=== PATIENT | male | born 1935 | race African-American/Black ===

== ENCOUNTER 2016-11-09 08:45 | Inpatient (IN) | payer OTHER ==
[~2016-11-09] VITALS: Ht 182.9 cm; Wt 70.0 kg
[~2016-11-09 08:45] MED LIST: ACET325T16 PO; ALLO100T PO; AMOX1TAB11 PO; BRIM5DRO3 EACHEYE; GUAI600T38 PO; IPRA3AMP NEB; LEVO250T25 PO; LEVO750T31 PO; NYST1000 SWSW; POLY17PO5 PO; PRED-220 PO; PRED20TA PO; TAMS0.4C97 PO; TIMO5DRO5 EACHEYE; TRIA1TAB3 PO
[2016-11-09] MEDS ORDERED: ALBUTEROL SULFATE 2.5 MG/3 ML NEBU. CONT NEB ONE (09:00)
--- NOTE | 2016-11-09 09:09 | PHYS DOC ---
Past Medical History Past Medical History: Cancer, COPD, Hypertension, Other Additional Past Medical Histor: gout, LUNG CANCER Past Surgical History: Other Additional Past Surgical Histo: R LUNG PARTIAL LOBECTOMY S/P LUNG CANCER Alcohol Use: Occasionally Drug Use: None Adult General Chief Complaint Chief Complaint: SHORTNESS OF BREATH HPI HPI Patient is a 81 year old male who presents with complaint of severe shortness of breath. Patient states his symptoms started 3 days ago and have gradually worsened since then. Patient has history of COPD. Patient states that he took a breathing treatment yesterday but has not taken any treatments today for his symptoms. Patient denies any associated fevers. Patient states that he had chest pain yesterday with his symptoms but denies any chest pain currently. Denies any nausea, vomiting, abdominal pain. Patient follows a Dr. Flores for primary care. Patient states that he is normally on 3 L per nasal cannula oxygen at home. Review of Systems Review of Systems Constitutional: Denies fever or chills [] Eyes: Denies change in visual acuity, redness, or eye pain [] HENT: Denies nasal congestion or sore throat [] Respiratory: Cough, shortness of breath [] Cardiovascular: Denies chest pain or edema [] GI: Denies abdominal pain, nausea, vomiting, bloody stools or diarrhea [] : Denies dysuria or hematuria [] Musculoskeletal: Denies back pain or joint pain [] Integument: Denies rash or skin lesions [] Neurologic: Denies headache, focal weakness or sensory changes [] Endocrine: Denies polyuria or polydipsia [] Current Medications Current Medications Current Medications Medications (Trade) Dose Ordered Sig/Lee Start Time Stop Time Status Last Admin Dose Admin Albuterol Sulfate (Ventolin Neb Soln) 7.5 mg 1X ONCE 11/09/16 09:00 11/09/16 09:05 DC 11/09/16 09:17 7.5 MG Albuterol/ Ipratropium (Duoneb) 3 ml 1X ONCE 11/09/16 09:30 11/09/16 09:31 DC 11/09/16 09:16 3 ML Methylprednisolone Sodium Succinate (Solu-Medrol 125mg Vial) 125 mg 1X ONCE 11/09/16 09:30 11/09/16 09:31 DC 11/09/16 09:41 125 MG Allergies Allergies Allergies Coded Allergies Type Severity Reaction Last Updated Verified No Known Drug Allergies 01/10/15 No Physical Exam Physical Exam Constitutional: Alert, afebrile, appears in moderate to severe respiratory distress. [] HENT: Normocephalic, atraumatic, bilateral external ears normal, oropharynx moist, no oral exudates, nose normal. [] Eyes: PERRLA, EOMI, conjunctiva normal, no discharge. [] Neck: Normal range of motion, no tenderness, supple, no stridor. [] Cardiovascular: Tachycardia, regular rhythm, no murmur [] Lungs & Thorax: Accessory muscle usage present, severely restricted air movement bilaterally, expiratory wheezes bilaterally, no rales [] Abdomen: Bowel sounds normal, soft, no tenderness, no masses, no pulsatile masses. [] Skin: Warm, dry, no erythema, no rash. [] Back: No tenderness, no CVA tenderness. [] Extremities: No tenderness, no cyanosis, no clubbing, ROM intact, no edema. [] Neurologic: Alert and oriented X 3, normal motor function, normal sensory function, no focal deficits noted. [] Current Patient Data Vital Signs Vital Signs Date Time Temp Pulse Resp B/P Pulse Ox O2 Delivery O2 Flow Rate FiO2 11/09/16 09:14 Nasal Cannula 3.0 11/09/16 08:59 98.1 106 28 133/76 66 98.1 Lab Values Laboratory Tests Test 11/09/16 09:15 11/09/16 09:25 White Blood Count 22.2x10^3/uL (4.0-11.0) H Red Blood Count 4.24x10^6/uL (4.30-5.70) L Hemoglobin 11.4g/dL (13.0-17.5) L Hematocrit 35.4% (39.0-53.0) L Mean Corpuscular Volume 83fL (79-100) Mean Corpuscular Hemoglobin 27pg (25-35) Mean Corpuscular Hemoglobin Concent 32g/dL (31-37) Red Cell Distribution Width 14.7% (11.5-14.5) H Platelet Count 215x10^3/uL (140-400) Neutrophils (%) (Auto) 79% (31-73) H Lymphocytes (%) (Auto) 8% (24-48) L Monocytes (%) (Auto) 12% (0-9) H Eosinophils (%) (Auto) 0% (0-3) Basophils (%) (Auto) 0% (0-3) Neutrophils # (Auto) 17.7x10^3uL (1.8-7.7) H Lymphocytes # (Auto) 1.8x10^3/uL (1.0-4.8) Monocytes # (Auto) 2.6x10^3/uL (0.0-1.1) H Eosinophils # (Auto) 0.1x10^3/uL (0.0-0.7) Basophils # (Auto) 0.1x10^3/uL (0.0-0.2) Platelet Estimate Pending Sodium Level 142mmol/L (136-145) Potassium Level 4.4mmol/L (3.5-5.1) Chloride Level 100mmol/L (98-107) Carbon Dioxide Level 34mmol/L (21-32) H Anion Gap 8 (6-14) Blood Urea Nitrogen 29mg/dL (8-26) H Creatinine 1.6mg/dL (0.7-1.3) H Estimated GFR (Cockcroft-Gault) 50.6 BUN/Creatinine Ratio 18 (6-20) Glucose Level 137mg/dL (70-99) H Lactic Acid Level 1.1mmol/L (0.4-2.0) Calcium Level 9.9mg/dL (8.5-10.1) Total Bilirubin 0.6mg/dL (0.2-1.0) Aspartate Amino Transferase (AST) 17U/L (15-37) Alanine Aminotransferase (ALT) 13U/L (16-63) L Alkaline Phosphatase 90U/L (46-116) Creatine Kinase 58U/L (39-308) Creatine Kinase MB (Mass) 0.7ng/mL (0.0-3.6) Creatine Kinase MB Relative Index % (0-4) Troponin I Quantitative < 0.017ng/mL (0.000-0.055) GF-Man-E-Type Natriuretic Peptide 94pg/mL (0-449) Total Protein 9.0g/dL (6.4-8.2) H Albumin 3.8g/dL (3.4-5.0) Albumin/Globulin Ratio 0.7 (1.0-1.7) L Influenza Type A Antigen Negative (NEGATIVE) Influenza Type B Antigen Negative (NEGATIVE) Laboratory Tests 11/09/16 09:15 Laboratory Tests 11/09/16 09:15 EKG EKG Interpreted by me: Heart rate 105, sinus tachycardia, left axis deviation, normal intervals, nonspecific T-wave inversion in lead aVL, no acute ST elevations or depressions Radiology/Procedures Radiology/Procedures [facility] [address] [place] [address] IMAGING REPORT Signed PATIENT: ORTIZ HSU ACCOUNT: [id number] : 1935 LOCATION: ER AGE: 81 SEX: M EXAM STATUS: PRE ER ORD. PHYSICIAN: MCKENNA RESENDIZ MD REASON: respiratory distress PROCEDURE: PORTABLE CHEST 1V Portable chest, 11/09/2016: History: Respiratory distress, intermittent chest pain Comparison is made to a study from 05/31/2016. The heart size is normal. There is aortic atherosclerosis. There are scattered parenchymal scars. Blunting of the right lateral costophrenic angle is unchanged and is apparently due to scarring. No superimposed acute infiltrates are seen. Lateral rib deformities on the right are likely postsurgical. IMPRESSION: 1. Postsurgical change with pleural/parenchymal scarring on the right. 2. No acute cardiopulmonary abnormality is detected. DICTATED and SIGNED BY: NAIMA APONTE MD DATE: 11/09/16914 CC: CARMEN FLORES; MCKENNA RESENDIZ MD ~ [] Course & Med Decision Making Course & Med Decision Making Pertinent Labs and Imaging studies reviewed. (See chart for details) Patient was started on an hour-long breathing treatment in the emergency department. On reevaluation, the patient is moving better air but is still moderately restricted. Due to the presence of desaturation to the mid 80s with minimal exertion, the patient will need admission for further treatment. Patient 's chest x-ray did not reveal obvious pneumonia, however patient does have leukocytosis and tachycardia. Clinically the patient display symptoms concerning for pneumonia. The patient after consultation with Dr. kings molina, the patient's accepting physician, will be started on IV Levaquin for treatment. I consult placed to Dr. Montee to follow patient in hospital. Dragon Disclaimer Dragon Disclaimer This electronic medical record was generated, in whole or in part, using a voice recognition dictation system. Departure Departure Impression: Primary Impression: Acute on chronic respiratory failure Additional Impression: CAP (community acquired pneumonia) Disposition: ADMITTED INPATIENT Admitting Physician: Flaco Pfeiffer Condition: GUARDED Referrals: CARMEN FLORES (PCP) Problem Qualifiers Primary Impression: Acute on chronic respiratory failure Respiratory failure complication: hypoxia Qualified Code: J96.21 - Acute and chronic respiratory failure with hypoxia MCKENNA RESENDIZ MD Nov 09, 2016 09:09
--- NOTE | 2016-11-09 09:21 | RAD ---
Portable chest, 11/09/2016: History: Respiratory distress, intermittent chest pain Comparison is made to a study from 05/31/2016. The heart size is normal. There is aortic atherosclerosis. There are scattered parenchymal scars. Blunting of the right lateral costophrenic angle is unchanged and is apparently due to scarring. No superimposed acute infiltrates are seen. Lateral rib deformities on the right are likely postsurgical. IMPRESSION: 1. Postsurgical change with pleural/parenchymal scarring on the right. 2. No acute cardiopulmonary abnormality is detected.
[2016-11-09] MEDS ORDERED: methylPREDNISolone SOD SUCC PF 125 MG/2 ML VIAL. IV ONE (09:30)
[2016-11-09] MEDS ORDERED: IPRATRPIUM/ALBUTEROL 0.5/2.5MG 3 ML NEBU. NEB ONE (09:30)
[2016-11-09 09:35] LABS: BASO # 0.1 x10^3/uL (0.0-0.2); BASO % 0 % (0-3); EOS % 0 % (0-3); HEMATOCRIT 35.4 % (39.0-53.0); HEMOGLOBIN 11.4 g/dL (13.0-17.5); LYMPH # 1.8 x10^3/uL (1.0-4.8); LYMPH % 8 % (24-48); MEAN CORPUSCULAR HEMOGLOBIN 27 pg (25-35); MEAN CORPUSCULAR HGB CONC 32 g/dL (31-37); MEAN CORPUSCULAR VOLUME 83 fL (79-100); MONO % 12 % (0-9); NEUT % 79 % (31-73); PLATELET COUNT 215 x10^3/uL (140-400); RED BLOOD COUNT 4.24 x10^6/uL (4.30-5.70); RED CELL DISTRIBUTION WIDTH 14.7 % (11.5-14.5); WHITE BLOOD COUNT 22.2 x10^3/uL (4.0-11.0)
[2016-11-09 09:46] LABS: CALCIUM 9.9 mg/dL (8.5-10.1); CREATININE 1.6 mg/dL (0.7-1.3); GFR 50.6; POTASSIUM 4.4 mmol/L (3.5-5.1)
[2016-11-09 09:54] LABS: OBC FLU VALID
[2016-11-09 10:00] LABS: ALBUMIN 3.8 g/dL (3.4-5.0); ALBUMIN/GLOBULIN RATIO 0.7 (1.0-1.7); TOTAL BILIRUBIN 0.6 mg/dL (0.2-1.0)
[2016-11-09 10:01] LABS: CKMB MASS 0.7 ng/mL (0.0-3.6); CREATINE KINASE 58 U/L (39-308)
[2016-11-09] MEDS ORDERED: ACETAMINOPHEN 325 MG TABLET. PO PRN ×2 (10:30→14:30)
[2016-11-09] MEDS ORDERED: ONDANSETRON PF 4 MG/2 ML VIAL. IV PRN (10:30)
[2016-11-09] MEDS ORDERED: LEVOFLOXACIN PER PHARMACY MC PRN (10:30)
[2016-11-09] MEDS: IV NORMAL SALINE 1000ML BAG 1,000 ML IV SCH ×2 (10:44→16:08)
[2016-11-09] MEDS: IPRATRPIUM/ALBUTEROL 0.5/2.5MG 3 ML NEBU. NEB SCH ×5 (12:13→19:28)
[2016-11-09 13:00] VITALS: BP 137/74
--- NOTE | 2016-11-09 13:03 | EKG ---
[facility] [address] [place] [address] Test Date: 2016-11-09 Test Time: 08:58:44 Pat Name: ORTIZ HSU Department: Room: 2 Gender: M Echo Tech: : [id number] Requested By: MCKENNA RESENDIZ Order Number: [id number] Reading MD: Mitzy Portillo Measurements Intervals [place] Rate: 105 P: -56 VT: 130 QRS: -66 QRSD: 96 T: 86 QT: 310 QTc: 413 Interpretive Statements SINUS TACHYCARDIA ABNORMAL LEFT AXIS DEVIATION T ABNORMALITY IN HIGH LATERAL LEADS ABNORMAL ECG RI6.01 Compared to ECG 05/09/2016 11:05:04 No significant changes Electronically Signed On 11-10-2016 20:15:33 CDT by Mitzy Portillo
[2016-11-09] MEDS ORDERED: TRIA1TAB3 (13:14)
[2016-11-09] MEDS ORDERED: ALBU2.5V5 (13:14)
--- NOTE | 2016-11-09 13:16 | PDOC ---
Provider Note Provider Note [id number] acute on chronic resp fail ae of copd acute bronchitis see orders. ROSARIO CRAIN MD Nov 09, 2016 13:16
--- NOTE | 2016-11-09 14:06 | CONS ---
DATE OF CONSULTATION: 11/09/2016 CHIEF COMPLAINT: I was asked to see this 81-year-old gentleman for [id number] respiratory failure, acute exacerbation of chronic obstructive pulmonary disease, shortness of breath, wheezing, and cough. HISTORY OF PRESENT ILLNESS: He does have a history of [id number]-aeyq smoking, stopped smoking 16 years ago. He is on chronic oxygen. He has a history of lung cancer, status post right upper lobectomy in 1999. He has been followed by Dr. Kent. He started to have increased shortness of breath and cough with yellow sputum production 2 days ago. He had some chills. He has runny nose. He has had chest tightness, but not chest pain. He denies gastroesophageal reflux symptoms. PAST MEDICAL HISTORY: COPD, chronic respiratory failure, lung cancer, status post right upper lobectomy, and gout. ALLERGIES: No known drug allergies. MEDICATIONS: Currently, he is on Solu-Medrol 60 mg IV every 6 hours., Levaquin 250 mg daily, IV fluid, and albuterol and Atrovent nebulizer treatment. SOCIAL HISTORY: History of 47-fghi-[id number] smoking, stopped smoking 16 years ago. FAMILY HISTORY: Positive for hypertension. REVIEW OF SYSTEMS: As mentioned as above, other systems otherwise negative. PHYSICAL EXAMINATION: VITAL SIGNS: His O2 saturation is 93% on 4 liters of oxygen, respiratory rate on admission was 28, now is 20, heart rate 100, blood pressure 132/76, and temperature 98.1. GENERAL: This is an elderly gentleman, on oxygen. HEENT: Normocephalic, atraumatic. Pupils are equal, round, and reactive to light. Throat is clear. Nose is clear. NECK: There is no JVD, lymphadenopathy, or thyromegaly. CARDIOVASCULAR: Regular rate and rhythm. PMI is nondisplaced. CHEST: Inspection is normal. LUNGS: There is bilateral end expiratory wheezing, diminished breath sounds. Right base dullness. ABDOMEN: Soft. Bowel sounds are good. There is no mass. EXTREMITIES: There is no edema. LYMPHATICS: There is no lymphadenopathy. NEUROLOGIC: Alert and oriented x 3. SKIN: Chronic changes. LYMPHATICS: There is no lymphadenopathy. LABORATORY DATA: I reviewed the following lab data: Chest x-ray shows status post right upper lobectomy, COPD changes, no infiltrate. WBC 22.2, hemoglobin 11.4, and platelet 215. Sodium 142, potassium 4.4, chloride 100, CO2 of 34, glucose 137, BUN 29, and creatinine 1.6. Troponin is less than 0.01. BNP is 94. IMPRESSION: 1. Acute on chronic respiratory failure, multifactorial in etiology. 2. Acute exacerbation of chronic obstructive pulmonary disease. 3. Acute bronchitis. 4. Acute kidney injury. 5. Leukocytosis. 6. Anemia. PLAN AND RECOMMENDATIONS: 1. Titrate FiO2 to keep O2 saturation 92%. 2. Bronchodilator. 3. Add inhaled corticosteroid. 4. Continue Solu-Medrol. 5. Continue Levaquin. 6. Sputum culture. 7. Influenza A and B is negative. 8. Lovenox for DVT prophylaxis. 9. Protonix for stress ulcer prophylaxis. 10. Monitor respiratory status very closely. 11. Continue not smoking. 12. His CT of the chest in July 2016 did not show any acute process, mass, or nodule. The findings and recommendations were discussed with the patient and his daughters. They understood and agreed to proceed with the plan. I have answered all of their questions. Thank you very much for allowing me to participate in care of this very nice gentleman. ROSARIO CRAIN M.D. : EDENILSON/chandler JOB#: [id number] / [id number]
--- NOTE | 2016-11-09 14:15 | ACF ---
Admission Forms Criteria RESPIRATORY FAILURE [facility] Clinical Indications for Admission to Inpatient Care (Place 'X' for any and all applicable criteria): Hospital admission is needed for appropriate care of the patient because of acute respiratory failure or insufficiency as indicated by ANY ONE of the following(1)(2)(3)(4)(5)(6)(7)(8): [X]I. Mechanical ventilation needed (acute invasive or noninvasive) [ ]II. Severe ventilation deficit as indicated by ANY ONE of the following (9) [ ]a) Respiratory acidosis (pH less than 7.32 and partial pressure of carbon dioxide greater than 40 mm Hg (5.3 kPa)) [ ]b) Partial pressure of carbon dioxide greater than 44 mm Hg (5.9 kPa ) (new) [ ]c) Airflow measurements less than 25% of predicted (eg, peak expiratory flow rate less than 100 L/minute) [ ]d) Forced vital capacity less than 15 mL/kg of ideal body weight, or 50% decrease in vital capacity from baseline [ ]III. Noncardiac pulmonary edema not resolving with rapid emergency treatment (8) [ ]IV. Severe respiratory distress as indicated by ANY ONE of the following: [ ]a) Severe tachypnea (respiratory rate greater than 30, greater than 45 for 6-month-old, greater than 60 for ) [ ]b) Severe hypoxemia (partial pressure of oxygen less than 50 mm Hg ( 6.7 kPa) on greater than 50% oxygen or partial pressure of oxygen to FIO2 ratio less than 200) [ ]c) Mental status deterioration from respiratory disease [ ]V. Airway obstruction or inadequate protection [A](10)(11) The original [employer] content created by [employer] has been revised. The portions of the content which have been revised are identified through the use of italic text or in bold, and [employer] has neither reviewed nor approved the modified material. All other unmodified content is copyright [employer]. Please see references footnoted in the original [employer] edition 2016 Admission Criteria Met?: Yes DAVID LOW Nov 09, 2016 14:14
[2016-11-09] MEDS ORDERED: POLYETHYLENE GLYCOL 3350 17 GM PACKET. PO PRN (14:30)
[2016-11-09 14:47] VITALS: BP 140/72
[2016-11-09] MEDS: BRIMONIDINE 0.2% OPHTH SOLUTION 5ML BOTTLE. OU SCH ×2 (15:00→20:51)
[2016-11-09 15:29] LABS: PLT ESTIMATE ADEQUATE (ADEQUATE)
--- NOTE | 2016-11-09 15:47 | PDOC ---
Provider Note Provider Note Pt seen.H&P to be dictated SARITA FLORES MD Nov 09, 2016 15:47
[2016-11-09] MEDS: NYSTATIN 100,000 UNITS/ML 5 ML ORAL.SUSP. SWSW SCH ×2 (16:01→20:54)
[2016-11-09] MEDS: ENOXAPARIN 30 MG/0.3 ML DISP.SYRIN. SQ SCH (16:01)
[2016-11-09] MEDS: methylPREDNISolone SOD SUCC PF 125 MG/2 ML VIAL. IV SCH ×3 (16:01→23:57)
[2016-11-09] MEDS: PANTOPRAZOLE 40 MG TABLET. PO SCH (16:02)
[2016-11-09] MEDS: TIMOLOL 0.5% OPHTH SOLUTION 5ML BOTTLE. OU SCH ×2 (16:02→20:51)
[2016-11-09 19:00] VITALS: BP 136/76
[2016-11-09] MEDS: BUDESONIDE 0.5 MG/2 ML NEBU NEB SCH (19:29)
[2016-11-09] MEDS: GUAIFENESIN ER 600 MG TABLET.ER PO SCH (20:52)
[2016-11-09 23:00] VITALS: BP 118/78
--- NOTE | 2016-11-09 23:49 | HP ---
ADMIT DATE: 11/09/2016 PATIENT LOCATION: [facility]. REASON FOR ADMISSION TO THE HOSPITAL: Shortness of breath, COPD with acute exacerbation, acute bronchitis, possible pneumonitis. HISTORY OF PRESENT ILLNESS: The patient is an 81-year-old male, patient of Dr. Carl. He has history of COPD. I had seen him in the last week or so, was given medications, prednisone and antibiotic, did not improve. He is coughing up some green-yellow phlegm. Getting progressively worse and more short of breath, came to the Emergency Room, was given IV Solu-Medrol, IV antibiotics. Pulmonary was consulted and the patient was admitted to the hospital. PAST MEDICAL HISTORY: He has history of lung cancer, had a right upper lobectomy in 1999, history of COPD, gout, hypertension. PAST SURGICAL HISTORY: He had lobectomy. ALLERGIES: No known drug allergies. MEDICATIONS AT HOME: The patient is on albuterol, was on Augmentin recently, prednisone recently, Dyazide one daily, Tylenol q. 6, allopurinol 100 mg daily, eyedrops for glaucoma, Alphagan one drop each eye 3 times a day, Mucinex 600 twice a day, DuoNeb 4 times daily, nystatin daily, MiraLax 17 g daily, Flomax 0.4 daily and timolol eyedrops 3 times a day each eye. SOCIAL HISTORY: The patient has nebulizer at home and also is on home oxygen. The patient is vaccination up to date on flu and pneumonia shots. REVIEW OF SYSTEMS: Complains of green phlegm and short of breath. No fever. Thick yellow sputum. Wheezing. FAMILY HISTORY: Positive for heart disease and hypertension. PERSONAL HISTORY: Smoking for 30-40 years, quit 16 years ago. No history of alcohol or drug abuse. PHYSICAL EXAMINATION: GENERAL: The patient is comfortable now. VITAL SIGNS: At the time of admission shows a temperature 98, pulse 106, respirations 28, blood pressure 133/76 and 66% on 3 liters, then went up to 100 on 3 liters with breathing treatment. HEENT: Head is atraumatic. Pupils equal. Oral cavity: No congestion. NECK: Supple. Thyroid not enlarged. JVD not elevated. CHEST: Symmetrical, COPD pattern. Has right upper lobe scar from lobectomy. LUNGS: Diminished breath sounds, occasional wheezing, crackles at the bases. ABDOMEN: Soft, bowel sounds present, no mass palpable. EXTERNAL GENITALIA: No Du. RECTAL: Deferred. EXTREMITIES: No calf tenderness, no edema. Pulses 1+. NEUROLOGIC: Cranial nerves intact. Power 5/5 in all extremities. The patient is coughing up thick green, yellow-green sputum and the sputum was sent for cultures. LABORATORY DATA: Shows a white count of 22, hemoglobin 11, platelets 250. Electrolytes show sodium 142, potassium 4.4, chloride 100, bicarbonate 34, BUN 29, creatinine 1.6. Lactic acid 1.1. LFTs were normal. CPK was negative. Influenza A and B was negative. Chest x-ray shows scarring in the right upper lung from previous surgery. Postsurgical changes, no acute abnormality. EKG done, no report available. FINAL IMPRESSION: 1. Possible pneumonia. 2. Chronic obstructive pulmonary disease with acute exacerbation. 3. History of lung cancer, had a lobectomy 15 years ago, right upper lobe. 4. BPH. 5. Hypertension. 6. Chronic COPD with hypoxia, on home oxygen. PLAN: At this time was admit to the hospital, hydrate with IV fluids. Sputum culture, broad spectrum antibiotic and Levaquin and also we will have pulmonary consult and see how the patient's condition improves. SARITA FLORES MD DR: JESSENIA/chandler JOB#: [id number] / [id number] anda Carl Dr.
[2016-11-10 03:00] VITALS: BP 121/53
[2016-11-10 04:50] LABS: BASO % 0 % (0-3); EOS % 0 % (0-3); HEMATOCRIT 33.9 % (39.0-53.0); HEMOGLOBIN 10.7 g/dL (13.0-17.5); LYMPH # 1.1 x10^3/uL (1.0-4.8); LYMPH % 8 % (24-48); MEAN CORPUSCULAR HEMOGLOBIN 27 pg (25-35); MEAN CORPUSCULAR HGB CONC 32 g/dL (31-37); MEAN CORPUSCULAR VOLUME 84 fL (79-100); MONO % 2 % (0-9); NEUT % 90 % (31-73); PLATELET COUNT 182 x10^3/uL (140-400); RED BLOOD COUNT 4.02 x10^6/uL (4.30-5.70); RED CELL DISTRIBUTION WIDTH 14.8 % (11.5-14.5); WHITE BLOOD COUNT 14.1 x10^3/uL (4.0-11.0)
[2016-11-10 05:05] LABS: CALCIUM 8.9 mg/dL (8.5-10.1); CREATININE 1.5 mg/dL (0.7-1.3); GFR 54.5; POTASSIUM 4.6 mmol/L (3.5-5.1)
[2016-11-10] MEDS: methylPREDNISolone SOD SUCC PF 125 MG/2 ML VIAL. IV SCH ×3 (06:16→23:04)
[2016-11-10 07:05] VITALS: BP 136/79
[2016-11-10] MEDS: BUDESONIDE 0.5 MG/2 ML NEBU NEB SCH ×2 (07:12→19:58)
[2016-11-10] MEDS: IPRATRPIUM/ALBUTEROL 0.5/2.5MG 3 ML NEBU. NEB SCH ×5 (07:12→19:58)
[2016-11-10] MEDS: TIMOLOL 0.5% OPHTH SOLUTION 5ML BOTTLE. OU SCH ×3 (08:28→20:55)
[2016-11-10] MEDS: ALLOPURINOL 100 MG TABLET. PO SCH (08:28)
[2016-11-10] MEDS: GUAIFENESIN ER 600 MG TABLET.ER PO SCH ×2 (08:28→20:50)
[2016-11-10] MEDS: PANTOPRAZOLE 40 MG TABLET. PO SCH (08:28)
[2016-11-10] MEDS: BRIMONIDINE 0.2% OPHTH SOLUTION 5ML BOTTLE. OU SCH ×3 (08:28→20:55)
[2016-11-10] MEDS: TAMSULOSIN 0.4 MG CAP.ER.24H. PO SCH (08:28)
--- NOTE | 2016-11-10 09:51 | PDOC ---
PULMONARY PROGRESS NOTES Subjective sob, cough, better, has runny nose Vitals Vital Signs Date Time Temp Pulse Resp B/P Pulse Ox O2 Delivery O2 Flow Rate FiO2 11/10/16 07:15 97 Nasal Cannula 4.0 11/10/16 07:05 97.7 92 20 136/79 97.7 Comments ros as mentioned as above other sys otherwise neg ROS: No Nausea, No Chest Pain General: Alert, Oriented X4, No acute distress HEENT: Other (nc at perrl) Lungs: Wheezing, Crackles, Other Cardiovascular: S1, S2 Abdomen: Soft, Non-tender Neuro Exam: Alert Extremities: No Edema Skin: Warm Labs Laboratory Tests Test 11/09/16 09:15 11/09/16 09:25 11/10/16 03:55 White Blood Count 22.2x10^3/uL (4.0-11.0) 14.1x10^3/uL (4.0-11.0) Red Blood Count 4.24x10^6/uL (4.30-5.70) 4.02x10^6/uL (4.30-5.70) Hemoglobin 11.4g/dL (13.0-17.5) 10.7g/dL (13.0-17.5) Hematocrit 35.4% (39.0-53.0) 33.9% (39.0-53.0) Mean Corpuscular Volume 83fL (79-100) 84fL (79-100) Mean Corpuscular Hemoglobin 27pg (25-35) 27pg (25-35) Mean Corpuscular Hemoglobin Concent 32g/dL (31-37) 32g/dL (31-37) Red Cell Distribution Width 14.7% (11.5-14.5) 14.8% (11.5-14.5) Platelet Count 215x10^3/uL (140-400) 182x10^3/uL (140-400) Neutrophils (%) (Auto) 79% (31-73) 90% (31-73) Lymphocytes (%) (Auto) 8% (24-48) 8% (24-48) Monocytes (%) (Auto) 12% (0-9) 2% (0-9) Eosinophils (%) (Auto) 0% (0-3) 0% (0-3) Basophils (%) (Auto) 0% (0-3) 0% (0-3) Neutrophils # (Auto) 17.7x10^3uL (1.8-7.7) 12.7x10^3uL (1.8-7.7) Lymphocytes # (Auto) 1.8x10^3/uL (1.0-4.8) 1.1x10^3/uL (1.0-4.8) Monocytes # (Auto) 2.6x10^3/uL (0.0-1.1) 0.3x10^3/uL (0.0-1.1) Eosinophils # (Auto) 0.1x10^3/uL (0.0-0.7) 0.0x10^3/uL (0.0-0.7) Basophils # (Auto) 0.1x10^3/uL (0.0-0.2) 0.0x10^3/uL (0.0-0.2) Segmented Neutrophils % 70% (35-66) Band Neutrophils % 8% (0-9) Lymphocytes % 10% (24-48) Monocytes % 12% (0-10) Platelet Estimate Adequate (ADEQUATE) Sodium Level 142mmol/L (136-145) 144mmol/L (136-145) Potassium Level 4.4mmol/L (3.5-5.1) 4.6mmol/L (3.5-5.1) Chloride Level 100mmol/L (98-107) 104mmol/L (98-107) Carbon Dioxide Level 34mmol/L (21-32) 31mmol/L (21-32) Anion Gap 8 (6-14) 9 (6-14) Blood Urea Nitrogen 29mg/dL (8-26) 32mg/dL (8-26) Creatinine 1.6mg/dL (0.7-1.3) 1.5mg/dL (0.7-1.3) Estimated GFR (Cockcroft-Gault) 50.6 54.5 BUN/Creatinine Ratio 18 (6-20) Glucose Level 137mg/dL (70-99) 138mg/dL (70-99) Lactic Acid Level 1.1mmol/L (0.4-2.0) Calcium Level 9.9mg/dL (8.5-10.1) 8.9mg/dL (8.5-10.1) Total Bilirubin 0.6mg/dL (0.2-1.0) Aspartate Amino Transf (AST/SGOT) 17U/L (15-37) Alanine Aminotransferase (ALT/SGPT) 13U/L (16-63) Alkaline Phosphatase 90U/L (46-116) Creatine Kinase 58U/L (39-308) Creatine Kinase MB (Mass) 0.7ng/mL (0.0-3.6) Creatine Kinase MB Relative Index % (0-4) Troponin I Quantitative < 0.017ng/mL (0.000-0.055) GS-Vuz-G-Type Natriuretic Peptide 94pg/mL (0-449) Total Protein 9.0g/dL (6.4-8.2) Albumin 3.8g/dL (3.4-5.0) Albumin/Globulin Ratio 0.7 (1.0-1.7) Influenza Type A Antigen Negative (NEGATIVE) Influenza Type B Antigen Negative (NEGATIVE) Laboratory Tests Test 11/10/16 03:55 White Blood Count 14.1x10^3/uL (4.0-11.0) Red Blood Count 4.02x10^6/uL (4.30-5.70) Hemoglobin 10.7g/dL (13.0-17.5) Hematocrit 33.9% (39.0-53.0) Mean Corpuscular Volume 84fL (79-100) Mean Corpuscular Hemoglobin 27pg (25-35) Mean Corpuscular Hemoglobin Concent 32g/dL (31-37) Red Cell Distribution Width 14.8% (11.5-14.5) Platelet Count 182x10^3/uL (140-400) Neutrophils (%) (Auto) 90% (31-73) Lymphocytes (%) (Auto) 8% (24-48) Monocytes (%) (Auto) 2% (0-9) Eosinophils (%) (Auto) 0% (0-3) Basophils (%) (Auto) 0% (0-3) Neutrophils # (Auto) 12.7x10^3uL (1.8-7.7) Lymphocytes # (Auto) 1.1x10^3/uL (1.0-4.8) Monocytes # (Auto) 0.3x10^3/uL (0.0-1.1) Eosinophils # (Auto) 0.0x10^3/uL (0.0-0.7) Basophils # (Auto) 0.0x10^3/uL (0.0-0.2) Sodium Level 144mmol/L (136-145) Potassium Level 4.6mmol/L (3.5-5.1) Chloride Level 104mmol/L (98-107) Carbon Dioxide Level 31mmol/L (21-32) Anion Gap 9 (6-14) Blood Urea Nitrogen 32mg/dL (8-26) Creatinine 1.5mg/dL (0.7-1.3) Estimated GFR (Cockcroft-Gault) 54.5 Glucose Level 138mg/dL (70-99) Calcium Level 8.9mg/dL (8.5-10.1) Medications Active Scripts Medications Dose Route/Sig Days Date Category Albuterol Sulfate Neb Soln (Albuterol Sulfate) 2.5 Mg/3 Ml Vial.neb 11/09/16 Reported Triamterene-Hctz 37.5-25 Mg Tb (Triamterene/Hydrochlorothiazid) 1 Each Tablet 11/09/16 Reported Prednisone 20 Mg Tablet 40 Mg PO DAILY 05/15/16 Rx Amox Tr-K Clv 875-125 Mg Tab (Amoxicillin/Potassium Clav) 1 Each Tablet 1 Tab PO BID 05/15/16 Rx Prednisone 10 Mg Tablet 10 Mg PO DIRECTED 05/12/16 Rx Miralax (Polyethylene Glycol 3350) 17 Gm Powd.pack 17 Gm PO PRN DAILY PRN 05/12/16 Rx Nystatin 100,000 Unit/1 Ml Oral.susp 5 Ml SWSW [id number] 05/12/16 Rx Duoneb 0.5-3(2.5) Mg/3 Ml (Albuterol/Ipratropium) 3 Ml Ampul.neb 3 Ml NEB RTQID 05/12/16 Rx Mucinex (Guaifenesin) 600 Mg Tablet.er 1,200 Mg PO BID 05/12/16 Rx Mapap (Acetaminophen) 325 Mg Tablet 650 Mg PO PRN Q6HRS PRN 05/12/16 Rx Alphagan P (Brimonidine Tartrate) 5 Ml Drops 1 Drop EACHEYE TID 04/12/16 Reported Timolol Maleate 10 Ml Drops 1 Drop EACHEYE TID 04/12/16 Reported Flomax (Tamsulosin Hcl) 0.4 Mg Cap.er.24h 1 Cap PO DAILY 10/24/15 Reported Allopurinol 100 Mg Tablet 1 Tab PO DAILY 10/24/15 Reported Comments Bands of presumed scarring bilaterally are stable. Blunting of the right costophrenic angle may be related to pleural parenchymal scarring and is stable. Impression . IMPRESSION: 1. Acute on chronic respiratory failure, multifactorial in etiology. 2. Acute exacerbation of chronic obstructive pulmonary disease. 3. Acute bronchitis. 4. Acute kidney injury. 5. Leukocytosis. 6. Anemia. Plan . PLAN AND RECOMMENDATIONS: 1. Titrate FiO2 to keep O2 saturation 92%. 2. Bronchodilator. 3. inhaled corticosteroid. 4. change Solu-Medrol to 40 q 8hrs 5. Continue Levaquin. 6. fu Sputum culture. 7. Influenza A and B is negative. 8. Lovenox for DVT prophylaxis. 9. Protonix for stress ulcer prophylaxis. 10. Monitor respiratory status very closely. 11. Continue not smoking. 12. His CT of the chest in July 2016 did not show any acute process, mass, or nodule. discussed w ROSARIO Cespedes MD Nov 10, 2016 09:51
[2016-11-10] MEDS: NYSTATIN 100,000 UNITS/ML 5 ML ORAL.SUSP. SWSW SCH ×4 (10:35→20:50)
[2016-11-10 11:05] VITALS: BP 116/63
--- NOTE | 2016-11-10 11:51 | PDOC ---
PROGRESS NOTES Subjective Subjective feeling better ,still coughing up green sputum Objective Objective Vital Signs Date Time Temp Pulse Resp B/P Pulse Ox O2 Delivery O2 Flow Rate FiO2 11/10/16 11:04 Nasal Cannula 4.0 11/10/16 07:15 97 11/10/16 07:05 97.7 92 20 136/79 97.7 Intake and Output 11/10/16 07:00 Intake Total 500 ml Output Total 1350 ml Balance -850 ml Intake Oral 500 ml Output Urine Total 1350 ml # Voids 1 Physical Exam Abdomen: Normal bowel sounds, Soft Heart: Regular rate, Normal S1, Normal S2 Extremities: No clubbing General: Alert HEENT: Atraumatic Lungs: Other (dec breath sounds) MUSCULOSKELETAL: No joint tenderness, Osteoarthritic changes both hands Neck: Supple Neuro: Normal speech Psych/Mental Status: Mental status NL Skin: No breakdown Diagnosis Problem List Problems Medical Problems: (1) Acute on chronic respiratory failure Status: Acute (2) CAP (community acquired pneumonia) Status: Acute (3) COPD exacerbation Status: Acute Assessment Assessment Problems Medical Problems: (1) Acute on chronic respiratory failure Status: Acute (2) CAP (community acquired pneumonia) Status: Acute (3) COPD exacerbation Status: Acute FINAL IMPRESSION: 1. Possible pneumonia.suspect gram neg. 2. Chronic obstructive pulmonary disease with acute exacerbation. 3. History of lung cancer, had a lobectomy 15 years ago, right upper lobe. 4. BPH. 5. Hypertension. 6. Chronic COPD with hypoxia, on home oxygen. PLAN: sputum c/s pending levaquin iv iv solumedrol. wbc down to 14. At this time was admit to the hospital, hydrate with IV fluids. Sputum culture, broad spectrum antibiotic and Levaquin and also we will have pulmonary consult and see how the patient's condition improves. Problems: Plan Plan of Care Problems Medical Problems: (1) Acute on chronic respiratory failure Status: Acute (2) CAP (community acquired pneumonia) Status: Acute (3) COPD exacerbation Status: Acute Comment Review of Relevant I have reviewed the following items jameel (where applicable) has been applied. Labs Laboratory Tests Test 11/10/16 03:55 White Blood Count 14.1x10^3/uL (4.0-11.0) Red Blood Count 4.02x10^6/uL (4.30-5.70) Hemoglobin 10.7g/dL (13.0-17.5) Hematocrit 33.9% (39.0-53.0) Mean Corpuscular Volume 84fL (79-100) Mean Corpuscular Hemoglobin 27pg (25-35) Mean Corpuscular Hemoglobin Concent 32g/dL (31-37) Red Cell Distribution Width 14.8% (11.5-14.5) Platelet Count 182x10^3/uL (140-400) Neutrophils (%) (Auto) 90% (31-73) Lymphocytes (%) (Auto) 8% (24-48) Monocytes (%) (Auto) 2% (0-9) Eosinophils (%) (Auto) 0% (0-3) Basophils (%) (Auto) 0% (0-3) Neutrophils # (Auto) 12.7x10^3uL (1.8-7.7) Lymphocytes # (Auto) 1.1x10^3/uL (1.0-4.8) Monocytes # (Auto) 0.3x10^3/uL (0.0-1.1) Eosinophils # (Auto) 0.0x10^3/uL (0.0-0.7) Basophils # (Auto) 0.0x10^3/uL (0.0-0.2) Sodium Level 144mmol/L (136-145) Potassium Level 4.6mmol/L (3.5-5.1) Chloride Level 104mmol/L (98-107) Carbon Dioxide Level 31mmol/L (21-32) Anion Gap 9 (6-14) Blood Urea Nitrogen 32mg/dL (8-26) Creatinine 1.5mg/dL (0.7-1.3) Estimated GFR (Cockcroft-Gault) 54.5 Glucose Level 138mg/dL (70-99) Calcium Level 8.9mg/dL (8.5-10.1) Microbiology 11/09/16 Blood Culture - Preliminary, Resulted NO GROWTH AFTER 1 DAY 11/09/16 Gram Stain - Final, Complete Medications Current Medications Acetaminophen (Tylenol) 650 mg PRN Q6HRS PRN PO MILD PAIN / TEMP; Start at 14:30 Albuterol/ Ipratropium (Duoneb) 3 ml RTQID NEB Last administered on 11/10/16 07:12; Start 11/09/16 at 12:00; Stop 11/10/16 at 09:54; Status DC Albuterol/ Ipratropium (Duoneb) 3 ml RTQID NEB Last administered on 11/10/16 11:03; Start 11/09/16 at 16:00 Allopurinol (Zyloprim) 100 mg DAILY PO Last administered on 11/10/16 08:28; Start 11/10/16 at 09:00 Brimonidine Tartrate (Alphagan) 1 drop TID OU Last administered on 11/10/16 08 :28; Start 11/09/16 at 15:00 Budesonide (Pulmicort) 0.5 mg RTBID NEB Last administered on 11/10/16 07:12; Start 11/09/16 at 20:00 Enoxaparin Sodium (Lovenox 30mg Syringe) 30 mg Q24H SQ Last administered on 16:01; Start 11/09/16 at 14:00 Guaifenesin (Mucinex) 1,200 mg BID PO Last administered on 11/10/16 08:28; Start 11/09/16 at 21:00 Levofloxacin/ Dextrose (LEVAQUIN 250mg PREMIX) 50 ml @ 50 mls/hr Q24H IV ; Start 11/10/16 at 12:00 Methylprednisolone Sodium Succinate (Solu-Medrol 125mg Vial) 40 mg Q8HRS IV ; Start 11/10/16 at 14:00 Methylprednisolone Sodium Succinate 60 mg 60 mg Q6HRS IV Last administered on 06:16; Start 11/09/16 at 14:00; Stop 11/10/16 at 09:53; Status DC Nystatin 5 ml [id number] Last administered on 11/09/16 20:54; Start at 17:00; Stop 11/10/16 at 10:30; Status DC Nystatin 5 ml [id number] Last administered on 11/10/16 10:35; Start at 10:30 Pantoprazole Sodium (Protonix) 40 mg DAILYAC PO Last administered on 11/10/16 08:28; Start 11/09/16 at 16:30 Polyethylene Glycol (miraLAX PACKET) 17 gm PRN DAILY PRN PO CONSTIPATION; Start 11/09/16 at 14:30 Tamsulosin HCl (Flomax) 0.4 mg DAILY PO Last administered on 11/10/16 08:28; Start 11/10/16 at 09:00 Timolol Maleate (Timoptic 0.5% Ophth) 1 drop TID OU Last administered on 08:28; Start 11/09/16 at 15:00 Vitals/I & O Vital Sign - Last 24 Hours 11/09/16 11/09/16 11/09/16 11/09/16 12:15 13:00 14:47 15:44 Temp 98.4 98.3 98.4 98.3 Pulse 101 98 Resp 14 14 B/P 137/74 140/72 Pulse Ox 93 96 96 O2 Delivery Nasal Cannula Nasal Cannula Nasal Cannula Nasal Cannula O2 Flow Rate 4.0 4.0 4.0 4.0 11/09/16 11/09/16 11/09/16 11/09/16 19:00 19:31 19:31 20:12 Temp 97.9 97.9 Pulse 87 Resp 18 B/P 136/76 Pulse Ox 98 94 94 O2 Delivery Nasal Cannula Nasal Cannula Nasal Cannula O2 Flow Rate 4.0 4.0 4.0 11/09/16 11/10/16 11/10/16 11/10/16 23:00 03:00 07:05 07:15 Temp 98.0 97.8 97.7 98.0 97.8 97.7 Pulse 80 98 92 Resp 16 18 20 B/P 118/78 121/53 136/79 Pulse Ox 99 99 97 O2 Delivery Nasal Cannula Nasal Cannula O2 Flow Rate 2.0 4.0 11/10/16 11:04 O2 Delivery Nasal Cannula O2 Flow Rate 4.0 Intake and Output 11/09/16 11/09/16 11/10/16 15:00 23:00 07:00 Intake Total 320 ml 180 ml Output Total 700 ml 650 ml Balance -380 ml -470 ml SARITA FLORES MD Nov 10, 2016 11:50
--- NOTE | 2016-11-10 14:34 | RAD ---
Indication: Follow-up pneumonia. Technique: Two-view chest radiograph was obtained. Comparison is from one day earlier. Findings: Bands of presumed scarring bilaterally are stable. Blunting of the right costophrenic angle may be related to pleural parenchymal scarring and is stable. No superimposed consolidation or effusion is apparent. Heart is not enlarged and there is no heart failure. Bony structures are intact. Leads overlie the patient. Impression: Stable examination
[2016-11-10] MEDS: ENOXAPARIN 30 MG/0.3 ML DISP.SYRIN. SQ SCH (14:54)
[2016-11-10 15:00] VITALS: BP 104/58
[2016-11-10 19:00] VITALS: BP 126/63
[2016-11-10 22:55] VITALS: BP 114/65
[2016-11-11 02:58] VITALS: BP 120/70
[2016-11-11 05:39] LABS: BASO % 0 % (0-3); EOS % 0 % (0-3); HEMATOCRIT 29.7 % (39.0-53.0); HEMOGLOBIN 9.2 g/dL (13.0-17.5); LYMPH # 0.9 x10^3/uL (1.0-4.8); LYMPH % 5 % (24-48); MEAN CORPUSCULAR HEMOGLOBIN 26 pg (25-35); MEAN CORPUSCULAR HGB CONC 31 g/dL (31-37); MEAN CORPUSCULAR VOLUME 85 fL (79-100); MONO % 3 % (0-9); NEUT % 92 % (31-73); PLATELET COUNT 178 x10^3/uL (140-400); RED BLOOD COUNT 3.48 x10^6/uL (4.30-5.70); RED CELL DISTRIBUTION WIDTH 14.8 % (11.5-14.5); WHITE BLOOD COUNT 18.1 x10^3/uL (4.0-11.0)
[2016-11-11 05:53] LABS: CREATININE 1.8 mg/dL (0.7-1.3); GFR 44.1; POTASSIUM 4.9 mmol/L (3.5-5.1)
[2016-11-11] MEDS: BUDESONIDE 0.5 MG/2 ML NEBU NEB SCH ×2 (05:56→20:09)
[2016-11-11] MEDS: IPRATRPIUM/ALBUTEROL 0.5/2.5MG 3 ML NEBU. NEB SCH ×4 (05:56→20:09)
[2016-11-11] MEDS: methylPREDNISolone SOD SUCC PF 125 MG/2 ML VIAL. IV SCH (06:04)
[2016-11-11 07:00] VITALS: BP 143/81
[2016-11-11] MEDS: PANTOPRAZOLE 40 MG TABLET. PO SCH (07:47)
--- NOTE | 2016-11-11 08:45 | PDOC ---
PULMONARY PROGRESS NOTES Subjective sob, cough, better, has large sputum, runny nose better, no pain Vitals Vital Signs Date Time Temp Pulse Resp B/P Pulse Ox O2 Delivery O2 Flow Rate FiO2 11/11/16 05:56 96 Nasal Cannula 4.0 11/11/16 02:58 97.8 80 20 120/70 97.8 Comments ros as mentioned as above other sys otherwise neg ROS: No Nausea, No Chest Pain General: Alert, Oriented X4, No acute distress HEENT: Other (nc at perrl) Lungs: Crackles, Other Cardiovascular: S1, S2 Abdomen: Soft, Non-tender Neuro Exam: Alert Extremities: No Edema Skin: Warm Labs Laboratory Tests Test 11/09/16 09:15 11/09/16 09:25 11/10/16 03:55 11/11/16 04:25 White Blood Count 22.2x10^3/uL (4.0-11.0) 14.1x10^3/uL (4.0-11.0) 18.1x10^3/uL (4.0-11.0) Red Blood Count 4.24x10^6/uL (4.30-5.70) 4.02x10^6/uL (4.30-5.70) 3.48x10^6/uL (4.30-5.70) Hemoglobin 11.4g/dL (13.0-17.5) 10.7g/dL (13.0-17.5) 9.2g/dL (13.0-17.5) Hematocrit 35.4% (39.0-53.0) 33.9% (39.0-53.0) 29.7% (39.0-53.0) Mean Corpuscular Volume 83fL (79-100) 84fL (79-100) 85fL (79-100) Mean Corpuscular Hemoglobin 27pg (25-35) 27pg (25-35) 26pg (25-35) Mean Corpuscular Hemoglobin Concent 32g/dL (31-37) 32g/dL (31-37) 31g/dL (31-37) Red Cell Distribution Width 14.7% (11.5-14.5) 14.8% (11.5-14.5) 14.8% (11.5-14.5) Platelet Count 215x10^3/uL (140-400) 182x10^3/uL (140-400) 178x10^3/uL (140-400) Neutrophils (%) (Auto) 79% (31-73) 90% (31-73) 92% (31-73) Lymphocytes (%) (Auto) 8% (24-48) 8% (24-48) 5% (24-48) Monocytes (%) (Auto) 12% (0-9) 2% (0-9) 3% (0-9) Eosinophils (%) (Auto) 0% (0-3) 0% (0-3) 0% (0-3) Basophils (%) (Auto) 0% (0-3) 0% (0-3) 0% (0-3) Neutrophils # (Auto) 17.7x10^3uL (1.8-7.7) 12.7x10^3uL (1.8-7.7) 16.6x10^3uL (1.8-7.7) Lymphocytes # (Auto) 1.8x10^3/uL (1.0-4.8) 1.1x10^3/uL (1.0-4.8) 0.9x10^3/uL (1.0-4.8) Monocytes # (Auto) 2.6x10^3/uL (0.0-1.1) 0.3x10^3/uL (0.0-1.1) 0.6x10^3/uL (0.0-1.1) Eosinophils # (Auto) 0.1x10^3/uL (0.0-0.7) 0.0x10^3/uL (0.0-0.7) 0.0x10^3/uL (0.0-0.7) Basophils # (Auto) 0.1x10^3/uL (0.0-0.2) 0.0x10^3/uL (0.0-0.2) 0.0x10^3/uL (0.0-0.2) Segmented Neutrophils % 70% (35-66) Band Neutrophils % 8% (0-9) Lymphocytes % 10% (24-48) Monocytes % 12% (0-10) Platelet Estimate Adequate (ADEQUATE) Sodium Level 142mmol/L (136-145) 144mmol/L (136-145) 146mmol/L (136-145) Potassium Level 4.4mmol/L (3.5-5.1) 4.6mmol/L (3.5-5.1) 4.9mmol/L (3.5-5.1) Chloride Level 100mmol/L (98-107) 104mmol/L (98-107) 108mmol/L (98-107) Carbon Dioxide Level 34mmol/L (21-32) 31mmol/L (21-32) 32mmol/L (21-32) Anion Gap 8 (6-14) 9 (6-14) 6 (6-14) Blood Urea Nitrogen 29mg/dL (8-26) 32mg/dL (8-26) 39mg/dL (8-26) Creatinine 1.6mg/dL (0.7-1.3) 1.5mg/dL (0.7-1.3) 1.8mg/dL (0.7-1.3) Estimated GFR (Cockcroft-Gault) 50.6 54.5 44.1 BUN/Creatinine Ratio 18 (6-20) Glucose Level 137mg/dL (70-99) 138mg/dL (70-99) 124mg/dL (70-99) Lactic Acid Level 1.1mmol/L (0.4-2.0) Calcium Level 9.9mg/dL (8.5-10.1) 8.9mg/dL (8.5-10.1) 9.0mg/dL (8.5-10.1) Total Bilirubin 0.6mg/dL (0.2-1.0) Aspartate Amino Transf (AST/SGOT) 17U/L (15-37) Alanine Aminotransferase (ALT/SGPT) 13U/L (16-63) Alkaline Phosphatase 90U/L (46-116) Creatine Kinase 58U/L (39-308) Creatine Kinase MB (Mass) 0.7ng/mL (0.0-3.6) Creatine Kinase MB Relative Index % (0-4) Troponin I Quantitative < 0.017ng/mL (0.000-0.055) FU-Cii-E-Type Natriuretic Peptide 94pg/mL (0-449) Total Protein 9.0g/dL (6.4-8.2) Albumin 3.8g/dL (3.4-5.0) Albumin/Globulin Ratio 0.7 (1.0-1.7) Influenza Type A Antigen Negative (NEGATIVE) Influenza Type B Antigen Negative (NEGATIVE) Laboratory Tests Test 11/11/16 04:25 White Blood Count 18.1x10^3/uL (4.0-11.0) Red Blood Count 3.48x10^6/uL (4.30-5.70) Hemoglobin 9.2g/dL (13.0-17.5) Hematocrit 29.7% (39.0-53.0) Mean Corpuscular Volume 85fL (79-100) Mean Corpuscular Hemoglobin 26pg (25-35) Mean Corpuscular Hemoglobin Concent 31g/dL (31-37) Red Cell Distribution Width 14.8% (11.5-14.5) Platelet Count 178x10^3/uL (140-400) Neutrophils (%) (Auto) 92% (31-73) Lymphocytes (%) (Auto) 5% (24-48) Monocytes (%) (Auto) 3% (0-9) Eosinophils (%) (Auto) 0% (0-3) Basophils (%) (Auto) 0% (0-3) Neutrophils # (Auto) 16.6x10^3uL (1.8-7.7) Lymphocytes # (Auto) 0.9x10^3/uL (1.0-4.8) Monocytes # (Auto) 0.6x10^3/uL (0.0-1.1) Eosinophils # (Auto) 0.0x10^3/uL (0.0-0.7) Basophils # (Auto) 0.0x10^3/uL (0.0-0.2) Sodium Level 146mmol/L (136-145) Potassium Level 4.9mmol/L (3.5-5.1) Chloride Level 108mmol/L (98-107) Carbon Dioxide Level 32mmol/L (21-32) Anion Gap 6 (6-14) Blood Urea Nitrogen 39mg/dL (8-26) Creatinine 1.8mg/dL (0.7-1.3) Estimated GFR (Cockcroft-Gault) 44.1 Glucose Level 124mg/dL (70-99) Calcium Level 9.0mg/dL (8.5-10.1) Medications Active Scripts Medications Dose Route/Sig Days Date Category Albuterol Sulfate Neb Soln (Albuterol Sulfate) 2.5 Mg/3 Ml Vial.neb 11/09/16 Reported Triamterene-Hctz 37.5-25 Mg Tb (Triamterene/Hydrochlorothiazid) 1 Each Tablet 11/09/16 Reported Prednisone 20 Mg Tablet 40 Mg PO DAILY 05/15/16 Rx Amox Tr-K Clv 875-125 Mg Tab (Amoxicillin/Potassium Clav) 1 Each Tablet 1 Tab PO BID 05/15/16 Rx Prednisone 10 Mg Tablet 10 Mg PO DIRECTED 05/12/16 Rx Miralax (Polyethylene Glycol 3350) 17 Gm Powd.pack 17 Gm PO PRN DAILY PRN 05/12/16 Rx Nystatin 100,000 Unit/1 Ml Oral.susp 5 Ml SWSW [id number] 05/12/16 Rx Duoneb 0.5-3(2.5) Mg/3 Ml (Albuterol/Ipratropium) 3 Ml Ampul.neb 3 Ml NEB RTQID 05/12/16 Rx Mucinex (Guaifenesin) 600 Mg Tablet.er 1,200 Mg PO BID 05/12/16 Rx Mapap (Acetaminophen) 325 Mg Tablet 650 Mg PO PRN Q6HRS PRN 05/12/16 Rx Alphagan P (Brimonidine Tartrate) 5 Ml Drops 1 Drop EACHEYE TID 04/12/16 Reported Timolol Maleate 10 Ml Drops 1 Drop EACHEYE TID 04/12/16 Reported Flomax (Tamsulosin Hcl) 0.4 Mg Cap.er.24h 1 Cap PO DAILY 10/24/15 Reported Allopurinol 100 Mg Tablet 1 Tab PO DAILY 10/24/15 Reported Comments Bands of presumed scarring bilaterally are stable. Blunting of the right costophrenic angle may be related to pleural parenchymal scarring and is stable. Impression . IMPRESSION: 1. Acute on chronic respiratory failure, multifactorial in etiology. 2. Acute exacerbation of chronic obstructive pulmonary disease. 3. Acute bronchitis. 4. Acute kidney injury. 5. Leukocytosis. 6. Anemia. Plan . PLAN AND RECOMMENDATIONS: 1. Titrate FiO2 to keep O2 saturation 92%. 2. Bronchodilator. 3. inhaled corticosteroid. 4. change Solu-Medrol to prednisone 40 mg daily 5. Continue Levaquin. 6. Sputum culture, mixed gina. 7. Influenza A and B is negative. 8. Lovenox for DVT prophylaxis. 9. Protonix for stress ulcer prophylaxis. 10. Monitor respiratory status very closely. 11. Continue not smoking. 12. His CT of the chest in July 2016 did not show any acute process, mass, or nodule. discussed w pt ROSARIO CRAIN MD Nov 11, 2016 08:45
[2016-11-11] MEDS: TAMSULOSIN 0.4 MG CAP.ER.24H. PO SCH (09:10)
[2016-11-11] MEDS: TIMOLOL 0.5% OPHTH SOLUTION 5ML BOTTLE. OU SCH ×3 (09:10→20:23)
[2016-11-11] MEDS: GUAIFENESIN ER 600 MG TABLET.ER PO SCH ×2 (09:10→20:22)
[2016-11-11] MEDS: BRIMONIDINE 0.2% OPHTH SOLUTION 5ML BOTTLE. OU SCH ×3 (09:10→20:23)
[2016-11-11] MEDS: PREDNISONE 20 MG TABLET PO SCH (09:10)
[2016-11-11] MEDS: ALLOPURINOL 100 MG TABLET. PO SCH (09:10)
[2016-11-11] MEDS: NYSTATIN 100,000 UNITS/ML 5 ML ORAL.SUSP. SWSW SCH ×4 (09:10→20:22)
[2016-11-11] MEDS: ENOXAPARIN 40 MG/0.4 ML DISP.SYRIN. SQ SCH (09:11)
[2016-11-11 11:00] VITALS: BP 125/66
--- NOTE | 2016-11-11 13:41 | PDOC ---
PROGRESS NOTES Subjective Subjective still coughing up green /yellow looking thick phlegm Objective Objective Vital Signs Date Time Temp Pulse Resp B/P Pulse Ox O2 Delivery O2 Flow Rate FiO2 11/11/16 11:00 97.5 77 14 125/66 98 Nasal Cannula 2.0 97.5 Intake and Output 11/11/16 07:00 Intake Total 2300 ml Output Total 1600 ml Balance 700 ml Intake Oral 2300 ml Output Urine Total 1600 ml # Voids 6 Physical Exam Abdomen: Normal bowel sounds, Soft Heart: Regular rate, Normal S1, Normal S2 Extremities: No clubbing General: Alert HEENT: Atraumatic Lungs: Other (dec breath sounds) MUSCULOSKELETAL: No joint tenderness, Osteoarthritic changes both hands Neck: Supple Neuro: Normal speech Psych/Mental Status: Mental status NL Skin: No breakdown Diagnosis Problem List Problems Medical Problems: (1) Acute on chronic respiratory failure Status: Acute (2) CAP (community acquired pneumonia) Status: Acute (3) COPD exacerbation Status: Acute Assessment Assessment Problems Medical Problems: (1) Acute on chronic respiratory failure Status: Acute (2) CAP (community acquired pneumonia) Status: Acute (3) COPD exacerbation Status: Acute FINAL IMPRESSION: 1. Possible pneumonia.suspect gram neg. 2. Chronic obstructive pulmonary disease with acute exacerbation. 3. History of lung cancer, had a lobectomy 15 years ago, right upper lobe. 4. BPH. 5. Hypertension. 6. Chronic COPD with hypoxia, on home oxygen. PLAN: start on Zyvox+zosyn for broader coverage ID consult sputum c/smixed gina d/c levaquin iv iv solumedrol. wbc down to 14. At this time was admit to the hospital, hydrate with IV fluids. Sputum culture, broad spectrum antibiotic and Levaquin and also we will have pulmonary consult and see how the patient's condition improves. Problems: Plan Plan of Care Problems Medical Problems: (1) Acute on chronic respiratory failure Status: Acute (2) CAP (community acquired pneumonia) Status: Acute (3) COPD exacerbation Status: Acute Comment Review of Relevant I have reviewed the following items jameel (where applicable) has been applied. Labs Laboratory Tests Test 11/11/16 04:25 White Blood Count 18.1x10^3/uL (4.0-11.0) Red Blood Count 3.48x10^6/uL (4.30-5.70) Hemoglobin 9.2g/dL (13.0-17.5) Hematocrit 29.7% (39.0-53.0) Mean Corpuscular Volume 85fL (79-100) Mean Corpuscular Hemoglobin 26pg (25-35) Mean Corpuscular Hemoglobin Concent 31g/dL (31-37) Red Cell Distribution Width 14.8% (11.5-14.5) Platelet Count 178x10^3/uL (140-400) Neutrophils (%) (Auto) 92% (31-73) Lymphocytes (%) (Auto) 5% (24-48) Monocytes (%) (Auto) 3% (0-9) Eosinophils (%) (Auto) 0% (0-3) Basophils (%) (Auto) 0% (0-3) Neutrophils # (Auto) 16.6x10^3uL (1.8-7.7) Lymphocytes # (Auto) 0.9x10^3/uL (1.0-4.8) Monocytes # (Auto) 0.6x10^3/uL (0.0-1.1) Eosinophils # (Auto) 0.0x10^3/uL (0.0-0.7) Basophils # (Auto) 0.0x10^3/uL (0.0-0.2) Sodium Level 146mmol/L (136-145) Potassium Level 4.9mmol/L (3.5-5.1) Chloride Level 108mmol/L (98-107) Carbon Dioxide Level 32mmol/L (21-32) Anion Gap 6 (6-14) Blood Urea Nitrogen 39mg/dL (8-26) Creatinine 1.8mg/dL (0.7-1.3) Estimated GFR (Cockcroft-Gault) 44.1 Glucose Level 124mg/dL (70-99) Calcium Level 9.0mg/dL (8.5-10.1) Microbiology 11/09/16 Blood Culture - Preliminary, Resulted NO GROWTH AFTER 2 DAYS 11/09/16 Gram Stain - Final, Complete Medications Current Medications Enoxaparin Sodium (Lovenox 40mg Syringe) 40 mg Q24H SQ Last administered on t 09:11; Start 11/11/16 at 09:00 Methylprednisolone Sodium Succinate (Solu-Medrol 125mg Vial) 40 mg Q8HRS IV Last administered on 11/11/16 06:04; Start 11/10/16 at 14:00; Stop 11/11/16 at 08:48; Status DC Prednisone (Prednisone) 40 mg DAILY PO Last administered on 11/11/16 09:10; Start 11/11/16 at 09:00 Vitals/I & O Vital Sign - Last 24 Hours 11/10/16 11/10/16 11/10/16 11/10/16 15:00 15:21 19:00 19:55 Temp 97.7 98.5 97.7 98.5 Pulse 89 89 Resp 16 20 B/P 104/58 126/63 Pulse Ox 97 97 96 O2 Delivery Nasal Cannula Nasal Cannula Room Air Nasal Cannula O2 Flow Rate 4.0 4.0 4.0 11/10/16 11/10/16 11/10/16 11/11/16 19:59 20:04 22:55 02:58 Temp 97.0 97.8 97.0 97.8 Pulse 83 80 Resp 20 B/P 114/65 120/70 Pulse Ox 95 95 97 99 O2 Delivery Nasal Cannula Nasal Cannula Room Air Room Air O2 Flow Rate 4.0 4.0 11/11/16 11/11/16 11/11/16 11/11/16 05:56 07:00 07:50 10:51 Temp 97.8 97.8 Pulse 78 Resp 14 B/P 143/81 Pulse Ox 96 99 99 O2 Delivery Nasal Cannula Nasal Cannula Nasal Cannula Nasal Cannula O2 Flow Rate 4.0 2.0 4.0 4.0 11/11/16 11:00 Temp 97.5 97.5 Pulse 77 Resp 14 B/P 125/66 Pulse Ox 98 O2 Delivery Nasal Cannula O2 Flow Rate 2.0 Intake and Output 11/10/16 11/10/16 11/11/16 15:00 23:00 07:00 Intake Total 780 ml 1280 ml 240 ml Output Total 1600 ml Balance 780 ml -320 ml 240 ml SARITA FLORES MD Nov 11, 2016 13:41
[2016-11-11 15:00] VITALS: BP 125/67
[2016-11-11] MEDS: PIPERACILLIN/TAZOBACTAM 3.375 GM in IV NORMAL SALINE 50ML 50 ML IV SCH (18:29)
[2016-11-11 19:00] VITALS: BP 128/62
[2016-11-11 22:45] VITALS: BP 121/60
[2016-11-12] MEDS: PIPERACILLIN/TAZOBACTAM 3.375 GM in IV NORMAL SALINE 50ML 50 ML IV SCH ×5 (00:09→23:52)
[2016-11-12 02:39] VITALS: BP 124/68
[2016-11-12 06:24] LABS: BASO % 0 % (0-3); EOS % 0 % (0-3); HEMATOCRIT 30.1 % (39.0-53.0); HEMOGLOBIN 9.4 g/dL (13.0-17.5); LYMPH # 1.7 x10^3/uL (1.0-4.8); LYMPH % 11 % (24-48); MEAN CORPUSCULAR HEMOGLOBIN 27 pg (25-35); MEAN CORPUSCULAR HGB CONC 31 g/dL (31-37); MEAN CORPUSCULAR VOLUME 85 fL (79-100); MONO % 8 % (0-9); NEUT % 81 % (31-73); PLATELET COUNT 184 x10^3/uL (140-400); RED BLOOD COUNT 3.55 x10^6/uL (4.30-5.70); RED CELL DISTRIBUTION WIDTH 14.7 % (11.5-14.5); WHITE BLOOD COUNT 15.2 x10^3/uL (4.0-11.0)
[2016-11-12 06:56] LABS: CALCIUM 8.7 mg/dL (8.5-10.1); CREATININE 1.4 mg/dL (0.7-1.3); POTASSIUM 4.6 mmol/L (3.5-5.1)
[2016-11-12 07:00] VITALS: BP 132/77
[2016-11-12] MEDS: BUDESONIDE 0.5 MG/2 ML NEBU NEB SCH ×2 (07:34→20:09)
[2016-11-12] MEDS: IPRATRPIUM/ALBUTEROL 0.5/2.5MG 3 ML NEBU. NEB SCH ×4 (07:34→20:09)
[2016-11-12] MEDS: TAMSULOSIN 0.4 MG CAP.ER.24H. PO SCH (07:54)
[2016-11-12] MEDS: ALLOPURINOL 100 MG TABLET. PO SCH (07:54)
[2016-11-12] MEDS: TIMOLOL 0.5% OPHTH SOLUTION 5ML BOTTLE. OU SCH ×3 (07:54→21:50)
[2016-11-12] MEDS: BRIMONIDINE 0.2% OPHTH SOLUTION 5ML BOTTLE. OU SCH ×3 (07:54→21:43)
[2016-11-12] MEDS: PANTOPRAZOLE 40 MG TABLET. PO SCH (07:54)
[2016-11-12] MEDS: PREDNISONE 20 MG TABLET PO SCH (07:54)
[2016-11-12] MEDS: NYSTATIN 100,000 UNITS/ML 5 ML ORAL.SUSP. SWSW SCH ×4 (07:55→21:44)
[2016-11-12] MEDS: GUAIFENESIN ER 600 MG TABLET.ER PO SCH ×2 (07:55→21:43)
[2016-11-12] MEDS: ENOXAPARIN 40 MG/0.4 ML DISP.SYRIN. SQ SCH (07:55)
--- NOTE | 2016-11-12 09:55 | PDOC ---
Infectious Disease Note Vital Sign Vital Signs Vital Signs Date Time Temp Pulse Resp B/P Pulse Ox O2 Delivery O2 Flow Rate FiO2 11/12/16 07:34 98 Nasal Cannula 4.0 11/12/16 07:00 98.2 79 18 132/77 98.2 Labs Lab Laboratory Tests Test 11/12/16 05:45 White Blood Count 15.2x10^3/uL (4.0-11.0) Red Blood Count 3.55x10^6/uL (4.30-5.70) Hemoglobin 9.4g/dL (13.0-17.5) Hematocrit 30.1% (39.0-53.0) Mean Corpuscular Volume 85fL (79-100) Mean Corpuscular Hemoglobin 27pg (25-35) Mean Corpuscular Hemoglobin Concent 31g/dL (31-37) Red Cell Distribution Width 14.7% (11.5-14.5) Platelet Count 184x10^3/uL (140-400) Neutrophils (%) (Auto) 81% (31-73) Lymphocytes (%) (Auto) 11% (24-48) Monocytes (%) (Auto) 8% (0-9) Eosinophils (%) (Auto) 0% (0-3) Basophils (%) (Auto) 0% (0-3) Neutrophils # (Auto) 12.3x10^3uL (1.8-7.7) Lymphocytes # (Auto) 1.7x10^3/uL (1.0-4.8) Monocytes # (Auto) 1.2x10^3/uL (0.0-1.1) Eosinophils # (Auto) 0.0x10^3/uL (0.0-0.7) Basophils # (Auto) 0.0x10^3/uL (0.0-0.2) Sodium Level 147mmol/L (136-145) Potassium Level 4.6mmol/L (3.5-5.1) Chloride Level 106mmol/L (98-107) Carbon Dioxide Level 36mmol/L (21-32) Anion Gap 5 (6-14) Blood Urea Nitrogen 29mg/dL (8-26) Creatinine 1.4mg/dL (0.7-1.3) Estimated GFR (Cockcroft-Gault) 59.0 Glucose Level 84mg/dL (70-99) Calcium Level 8.7mg/dL (8.5-10.1) Objective Assessment COPD exacerbation Acute bronchitis Leukocytosis Anemia h/o Lung ca Plan Plan of Care zyvox and zosyn check cultures and adjust supportive care d/w NCIOLE Hernandez MD Nov 12, 2016 09:55
--- NOTE | 2016-11-12 10:09 | PDOC ---
PROGRESS NOTES Subjective Subjective less yellow sputum Objective Objective Vital Signs Date Time Temp Pulse Resp B/P Pulse Ox O2 Delivery O2 Flow Rate FiO2 11/12/16 07:34 98 Nasal Cannula 4.0 11/12/16 07:00 98.2 79 18 132/77 98.2 Intake and Output 11/12/16 07:00 Intake Total 400 ml Output Total 1850 ml Balance -1450 ml IV Total 400 ml Output Urine Total 1850 ml # Voids 3 Physical Exam Abdomen: Normal bowel sounds, Soft Heart: Regular rate, Normal S1, Normal S2 Extremities: No clubbing General: Alert HEENT: Atraumatic Lungs: Other (dec breath sounds) MUSCULOSKELETAL: No joint tenderness, Osteoarthritic changes both hands Neck: Supple Neuro: Normal speech Psych/Mental Status: Mental status NL Skin: No breakdown Diagnosis Problem List Problems Medical Problems: (1) Acute on chronic respiratory failure Status: Acute (2) CAP (community acquired pneumonia) Status: Acute (3) COPD exacerbation Status: Acute Assessment Assessment Problems Medical Problems: (1) Acute on chronic respiratory failure Status: Acute (2) CAP (community acquired pneumonia) Status: Acute (3) COPD exacerbation Status: Acute FINAL IMPRESSION: 1. Possible pneumonia.suspect gram neg. 2. Chronic obstructive pulmonary disease with acute exacerbation. 3. History of lung cancer, had a lobectomy 15 years ago, right upper lobe. 4. BPH. 5. Hypertension. 6. Chronic COPD with hypoxia, on home oxygen. PLAN: started on Zyvox+zosyn for broader coverage ID consulted sputum c/s mixed gina d/c levaquin iv iv solumedrol. wbc down to 14. At this time was admit to the hospital, hydrate with IV fluids. Sputum culture, broad spectrum antibiotic and Levaquin and also we will have pulmonary consult and see how the patient's condition improves. Problems: Plan Plan of Care Problems Medical Problems: (1) Acute on chronic respiratory failure Status: Acute (2) CAP (community acquired pneumonia) Status: Acute (3) COPD exacerbation Status: Acute Comment Review of Relevant I have reviewed the following items jameel (where applicable) has been applied. Labs Laboratory Tests Test 11/12/16 05:45 White Blood Count 15.2x10^3/uL (4.0-11.0) Red Blood Count 3.55x10^6/uL (4.30-5.70) Hemoglobin 9.4g/dL (13.0-17.5) Hematocrit 30.1% (39.0-53.0) Mean Corpuscular Volume 85fL (79-100) Mean Corpuscular Hemoglobin 27pg (25-35) Mean Corpuscular Hemoglobin Concent 31g/dL (31-37) Red Cell Distribution Width 14.7% (11.5-14.5) Platelet Count 184x10^3/uL (140-400) Neutrophils (%) (Auto) 81% (31-73) Lymphocytes (%) (Auto) 11% (24-48) Monocytes (%) (Auto) 8% (0-9) Eosinophils (%) (Auto) 0% (0-3) Basophils (%) (Auto) 0% (0-3) Neutrophils # (Auto) 12.3x10^3uL (1.8-7.7) Lymphocytes # (Auto) 1.7x10^3/uL (1.0-4.8) Monocytes # (Auto) 1.2x10^3/uL (0.0-1.1) Eosinophils # (Auto) 0.0x10^3/uL (0.0-0.7) Basophils # (Auto) 0.0x10^3/uL (0.0-0.2) Sodium Level 147mmol/L (136-145) Potassium Level 4.6mmol/L (3.5-5.1) Chloride Level 106mmol/L (98-107) Carbon Dioxide Level 36mmol/L (21-32) Anion Gap 5 (6-14) Blood Urea Nitrogen 29mg/dL (8-26) Creatinine 1.4mg/dL (0.7-1.3) Estimated GFR (Cockcroft-Gault) 59.0 Glucose Level 84mg/dL (70-99) Calcium Level 8.7mg/dL (8.5-10.1) Microbiology 11/09/16 Blood Culture - Preliminary, Resulted NO GROWTH AFTER 2 DAYS 11/09/16 Sputum Culture - Final, Complete 11/09/16 Sputum Result 1 - Final, Complete Medications Current Medications Linezolid 300 ml @ 300 mls/hr Q12HR IV Last administered on 11/12/16t 07:55; Start 11/11/16 at 14:00 Piperacillin Sod/ Tazobactam Sod/ Sodium Chloride (Zosyn/Iv Sodium Chloride 0.9 % 50ml) 50 ml @ 100 mls/hr Q6HRS IV Last administered on 11/12/16t 05:36; Start 11/11/16 at 18:00 Vitals/I & O Vital Sign - Last 24 Hours 11/11/16 11/11/16 11/11/16 11/11/16 10:51 11:00 15:00 15:16 Temp 97.5 97.7 97.5 97.7 Pulse 77 80 Resp 14 14 B/P 125/66 125/67 Pulse Ox 99 98 96 98 O2 Delivery Nasal Cannula Nasal Cannula Nasal Cannula Nasal Cannula O2 Flow Rate 4.0 2.0 2.0 4.0 11/11/16 11/11/16 11/11/16 11/11/16 19:00 19:49 20:10 20:11 Temp 97.4 97.4 Pulse 84 Resp 16 B/P 128/62 Pulse Ox 97 97 97 O2 Delivery Nasal Cannula Nasal Cannula Nasal Cannula Nasal Cannula O2 Flow Rate 2.0 4.0 4.0 4.0 11/11/16 11/12/16 11/12/16 11/12/16 22:45 02:39 07:00 07:34 Temp 97.9 97.7 98.2 97.9 97.7 98.2 Pulse 79 78 79 Resp 17 17 18 B/P 121/60 124/68 132/77 Pulse Ox 97 100 99 98 O2 Delivery Nasal Cannula Nasal Cannula Nasal Cannula Nasal Cannula O2 Flow Rate 2.0 2.0 4.0 4.0 Intake and Output 11/11/16 11/11/16 11/12/16 15:00 23:00 07:00 Intake Total 300 ml 100 ml Output Total 650 ml 1200 ml Balance -350 ml -1100 ml SARITA FLORES MD Nov 12, 2016 10:09
[2016-11-12 10:46] VITALS: BP 133/72
--- NOTE | 2016-11-12 12:23 | PDOC ---
PULMONARY PROGRESS NOTES Subjective PT WITH LESS SOA Vitals Vital Signs Date Time Temp Pulse Resp B/P Pulse Ox O2 Delivery O2 Flow Rate FiO2 11/12/16 11:35 97 Nasal Cannula 4.0 11/12/16 10:46 97.4 64 18 133/72 97.4 ROS: No Nausea, No Chest Pain, No Abdominal Pain, No Increase Cough General: Alert, No acute distress HEENT: Other (nc at perrl) Lungs: Crackles, Other Cardiovascular: S1, S2 Abdomen: Soft, Non-tender Neuro Exam: Alert Extremities: No Edema Skin: Warm Labs Laboratory Tests Test 11/11/16 04:25 11/12/16 05:45 White Blood Count 18.1x10^3/uL (4.0-11.0) 15.2x10^3/uL (4.0-11.0) Red Blood Count 3.48x10^6/uL (4.30-5.70) 3.55x10^6/uL (4.30-5.70) Hemoglobin 9.2g/dL (13.0-17.5) 9.4g/dL (13.0-17.5) Hematocrit 29.7% (39.0-53.0) 30.1% (39.0-53.0) Mean Corpuscular Volume 85fL (79-100) 85fL (79-100) Mean Corpuscular Hemoglobin 26pg (25-35) 27pg (25-35) Mean Corpuscular Hemoglobin Concent 31g/dL (31-37) 31g/dL (31-37) Red Cell Distribution Width 14.8% (11.5-14.5) 14.7% (11.5-14.5) Platelet Count 178x10^3/uL (140-400) 184x10^3/uL (140-400) Neutrophils (%) (Auto) 92% (31-73) 81% (31-73) Lymphocytes (%) (Auto) 5% (24-48) 11% (24-48) Monocytes (%) (Auto) 3% (0-9) 8% (0-9) Eosinophils (%) (Auto) 0% (0-3) 0% (0-3) Basophils (%) (Auto) 0% (0-3) 0% (0-3) Neutrophils # (Auto) 16.6x10^3uL (1.8-7.7) 12.3x10^3uL (1.8-7.7) Lymphocytes # (Auto) 0.9x10^3/uL (1.0-4.8) 1.7x10^3/uL (1.0-4.8) Monocytes # (Auto) 0.6x10^3/uL (0.0-1.1) 1.2x10^3/uL (0.0-1.1) Eosinophils # (Auto) 0.0x10^3/uL (0.0-0.7) 0.0x10^3/uL (0.0-0.7) Basophils # (Auto) 0.0x10^3/uL (0.0-0.2) 0.0x10^3/uL (0.0-0.2) Sodium Level 146mmol/L (136-145) 147mmol/L (136-145) Potassium Level 4.9mmol/L (3.5-5.1) 4.6mmol/L (3.5-5.1) Chloride Level 108mmol/L (98-107) 106mmol/L (98-107) Carbon Dioxide Level 32mmol/L (21-32) 36mmol/L (21-32) Anion Gap 6 (6-14) 5 (6-14) Blood Urea Nitrogen 39mg/dL (8-26) 29mg/dL (8-26) Creatinine 1.8mg/dL (0.7-1.3) 1.4mg/dL (0.7-1.3) Estimated GFR (Cockcroft-Gault) 44.1 59.0 Glucose Level 124mg/dL (70-99) 84mg/dL (70-99) Calcium Level 9.0mg/dL (8.5-10.1) 8.7mg/dL (8.5-10.1) Laboratory Tests Test 11/12/16 05:45 White Blood Count 15.2x10^3/uL (4.0-11.0) Red Blood Count 3.55x10^6/uL (4.30-5.70) Hemoglobin 9.4g/dL (13.0-17.5) Hematocrit 30.1% (39.0-53.0) Mean Corpuscular Volume 85fL (79-100) Mean Corpuscular Hemoglobin 27pg (25-35) Mean Corpuscular Hemoglobin Concent 31g/dL (31-37) Red Cell Distribution Width 14.7% (11.5-14.5) Platelet Count 184x10^3/uL (140-400) Neutrophils (%) (Auto) 81% (31-73) Lymphocytes (%) (Auto) 11% (24-48) Monocytes (%) (Auto) 8% (0-9) Eosinophils (%) (Auto) 0% (0-3) Basophils (%) (Auto) 0% (0-3) Neutrophils # (Auto) 12.3x10^3uL (1.8-7.7) Lymphocytes # (Auto) 1.7x10^3/uL (1.0-4.8) Monocytes # (Auto) 1.2x10^3/uL (0.0-1.1) Eosinophils # (Auto) 0.0x10^3/uL (0.0-0.7) Basophils # (Auto) 0.0x10^3/uL (0.0-0.2) Sodium Level 147mmol/L (136-145) Potassium Level 4.6mmol/L (3.5-5.1) Chloride Level 106mmol/L (98-107) Carbon Dioxide Level 36mmol/L (21-32) Anion Gap 5 (6-14) Blood Urea Nitrogen 29mg/dL (8-26) Creatinine 1.4mg/dL (0.7-1.3) Estimated GFR (Cockcroft-Gault) 59.0 Glucose Level 84mg/dL (70-99) Calcium Level 8.7mg/dL (8.5-10.1) Medications Active Scripts Medications Dose Route/Sig Days Date Category Albuterol Sulfate Neb Soln (Albuterol Sulfate) 2.5 Mg/3 Ml Vial.neb 11/09/16 Reported Triamterene-Hctz 37.5-25 Mg Tb (Triamterene/Hydrochlorothiazid) 1 Each Tablet 11/09/16 Reported Prednisone 20 Mg Tablet 40 Mg PO DAILY 05/15/16 Rx Amox Tr-K Clv 875-125 Mg Tab (Amoxicillin/Potassium Clav) 1 Each Tablet 1 Tab PO BID 05/15/16 Rx Prednisone 10 Mg Tablet 10 Mg PO DIRECTED 05/12/16 Rx Miralax (Polyethylene Glycol 3350) 17 Gm Powd.pack 17 Gm PO PRN DAILY PRN 05/12/16 Rx Nystatin 100,000 Unit/1 Ml Oral.susp 5 Ml SWSW [id number] 05/12/16 Rx Duoneb 0.5-3(2.5) Mg/3 Ml (Albuterol/Ipratropium) 3 Ml Ampul.neb 3 Ml NEB RTQID 05/12/16 Rx Mucinex (Guaifenesin) 600 Mg Tablet.er 1,200 Mg PO BID 05/12/16 Rx Mapap (Acetaminophen) 325 Mg Tablet 650 Mg PO PRN Q6HRS PRN 05/12/16 Rx Alphagan P (Brimonidine Tartrate) 5 Ml Drops 1 Drop EACHEYE TID 04/12/16 Reported Timolol Maleate 10 Ml Drops 1 Drop EACHEYE TID 04/12/16 Reported Flomax (Tamsulosin Hcl) 0.4 Mg Cap.er.24h 1 Cap PO DAILY 10/24/15 Reported Allopurinol 100 Mg Tablet 1 Tab PO DAILY 10/24/15 Reported Comments Bands of presumed scarring bilaterally are stable. Blunting of the right costophrenic angle may be related to pleural parenchymal scarring and is stable. Impression . IMPRESSION: 1. Acute on chronic respiratory failure, multifactorial in etiology. 2. Acute exacerbation of chronic obstructive pulmonary disease. 3. Acute bronchitis. 4. Acute kidney injury. 5. Leukocytosis. 6. Anemia. Plan . ANTIBX PER ID [id number] JORGE MABRYUMEBLANCHE MATHIS MD Nov 12, 2016 12:23
[2016-11-12 14:49] VITALS: BP 145/82
[2016-11-12 19:00] VITALS: BP 148/79
[2016-11-12 22:31] VITALS: BP 152/79
--- NOTE | 2016-11-13 02:21 | CONS ---
DATE OF CONSULTATION: 11/12/2016 REFERRING PHYSICIAN: Dr. Flaco Pfeiffer. REASON FOR CONSULTATION: COPD exacerbation, acute bronchitis, and continued problem with green sputum. HISTORY OF PRESENT ILLNESS: This is an 81-year-old -[place] gentleman with a history of COPD. He also had a history of lung cancer, status post lung surgery done, lobectomy, in the past, who was admitted with coughing and coughing of green sputum. The patient also had some shortness of breath. Denied any fever, denied any nausea, vomiting, or diarrhea. The patient was initially started on Levaquin, which did not help and now, he has been changed to Zyvox and Zosyn. The patient denies any other complaints. PAST MEDICAL HISTORY: Positive for a history of lung cancer, status post lobectomy in 1999, COPD, gout and hypertension. SOCIAL HISTORY: Negative for smoking. The patient smoked until the lobectomy and since then, he has not smoked. No alcohol use or drug use. ALLERGIES: No known drug allergies. CURRENT MEDICATIONS: Reviewed. The patient is on Zyvox and Zosyn. REVIEW OF SYSTEMS: As per HPI. All other systems reviewed are negative. PHYSICAL EXAMINATION: GENERAL: An alert and oriented gentleman, not in distress. VITAL SIGNS: Stable, afebrile. HEENT: NAD. NECK: Supple. No JVP. No lymphadenopathy. LUNGS: Clear. CARDIOVASCULAR: S1, S2 regular. ABDOMEN: Benign. EXTREMITIES: No edema or cyanosis. SKIN: Unremarkable. NEUROLOGIC: The patient is neurologically intact. LABORATORY DATA: White count is 15,000, BUN is 29 and creatinine 1.4. Influenza screening was negative. So far, blood culture is negative. Sputum culture is just showing upper respiratory gina. Chest x-ray showed lot of chronic changes. There is scarring and pleural fluid present. IMPRESSION: 1. Acute chronic obstructive pulmonary disease exacerbation. 2. Acute bronchitis. 3. Leukocytosis. 4. History of lung cancer. 5. Anemia. PLAN: Recommend continue Zyvox and Zosyn for the time being, soon to be able to switch over to oral for the discharge at the time of transport. Thank you very much, Dr. Pfeiffer, for giving me the opportunity to participate in this patient's care. NICOLE BANDA MD DR: FAITH/chandler JOB#: [id number] / [id number]
[2016-11-13 02:39] VITALS: BP 144/82
[2016-11-13 04:43] LABS: BASO % 0 % (0-3); EOS % 0 % (0-3); HEMOGLOBIN 9.9 g/dL (13.0-17.5); LYMPH # 2.3 x10^3/uL (1.0-4.8); LYMPH % 17 % (24-48); MEAN CORPUSCULAR HEMOGLOBIN 27 pg (25-35); MEAN CORPUSCULAR HGB CONC 32 g/dL (31-37); MEAN CORPUSCULAR VOLUME 85 fL (79-100); MONO % 11 % (0-9); NEUT % 72 % (31-73); PLATELET COUNT 191 x10^3/uL (140-400); RED BLOOD COUNT 3.66 x10^6/uL (4.30-5.70); RED CELL DISTRIBUTION WIDTH 14.3 % (11.5-14.5); WHITE BLOOD COUNT 13.7 x10^3/uL (4.0-11.0)
[2016-11-13 05:30] LABS: CALCIUM 8.6 mg/dL (8.5-10.1); CREATININE 1.4 mg/dL (0.7-1.3); POTASSIUM 4.3 mmol/L (3.5-5.1)
[2016-11-13] MEDS: PIPERACILLIN/TAZOBACTAM 3.375 GM in IV NORMAL SALINE 50ML 50 ML IV SCH ×3 (06:24→17:01)
[2016-11-13 07:00] VITALS: BP 142/87
[2016-11-13] MEDS: IPRATRPIUM/ALBUTEROL 0.5/2.5MG 3 ML NEBU. NEB SCH ×4 (07:59→20:07)
[2016-11-13] MEDS: BUDESONIDE 0.5 MG/2 ML NEBU NEB SCH ×2 (07:59→20:07)
[2016-11-13] MEDS: ENOXAPARIN 40 MG/0.4 ML DISP.SYRIN. SQ SCH (08:25)
[2016-11-13] MEDS: BRIMONIDINE 0.2% OPHTH SOLUTION 5ML BOTTLE. OU SCH ×3 (08:25→21:00)
[2016-11-13] MEDS: NYSTATIN 100,000 UNITS/ML 5 ML ORAL.SUSP. SWSW SCH ×4 (08:26→21:01)
[2016-11-13] MEDS: TAMSULOSIN 0.4 MG CAP.ER.24H. PO SCH (08:26)
[2016-11-13] MEDS: GUAIFENESIN ER 600 MG TABLET.ER PO SCH ×2 (08:26→21:00)
[2016-11-13] MEDS: PREDNISONE 20 MG TABLET PO SCH (08:26)
[2016-11-13] MEDS: TIMOLOL 0.5% OPHTH SOLUTION 5ML BOTTLE. OU SCH ×3 (08:26→21:05)
[2016-11-13] MEDS: ALLOPURINOL 100 MG TABLET. PO SCH (08:27)
[2016-11-13] MEDS: PANTOPRAZOLE 40 MG TABLET. PO SCH (08:27)
--- NOTE | 2016-11-13 10:13 | PDOC ---
PROGRESS NOTES Subjective Subjective still coughing up yellow green sputum Objective Objective Vital Signs Date Time Temp Pulse Resp B/P Pulse Ox O2 Delivery O2 Flow Rate FiO2 11/13/16 08:18 Nasal Cannula 4.0 11/13/16 08:00 96 11/13/16 07:00 97.9 86 18 142/87 97.9 Intake and Output 11/13/16 07:00 Intake Total 660 ml Output Total 2050 ml Balance -1390 ml Intake Oral 660 ml Output Urine Total 2050 ml Physical Exam Abdomen: Normal bowel sounds, Soft Heart: Regular rate, Normal S1, Normal S2 Extremities: No clubbing General: Alert HEENT: Atraumatic Lungs: Other (dec breath sounds) MUSCULOSKELETAL: No joint tenderness, Osteoarthritic changes both hands Neck: Supple Neuro: Normal speech Psych/Mental Status: Mental status NL Skin: No breakdown Diagnosis Problem List Problems Medical Problems: (1) Acute on chronic respiratory failure Status: Acute (2) CAP (community acquired pneumonia) Status: Acute (3) COPD exacerbation Status: Acute Assessment Assessment Problems Medical Problems: (1) Acute on chronic respiratory failure Status: Acute (2) CAP (community acquired pneumonia) Status: Acute (3) COPD exacerbation Status: Acute FINAL IMPRESSION: 1. Possible pneumonia.suspect gram neg. 2. Chronic obstructive pulmonary disease with acute exacerbation. 3. History of lung cancer, had a lobectomy 15 years ago, right upper lobe. 4. BPH. 5. Hypertension. 6. Chronic COPD with hypoxia, on home oxygen. PLAN: will do CT chest. sputum c/s neg. wbc 14 down. cr 1.4 started on Zyvox+zosyn for broader coverage ID consulted sputum c/s mixed gina PT/OT iv solumedrol. wbc down to 14. At this time was admit to the hospital, hydrate with IV fluids. Sputum culture, broad spectrum antibiotic and Levaquin and also we will have pulmonary consult and see how the patient's condition improves. Problems: Plan Plan of Care Problems Medical Problems: (1) Acute on chronic respiratory failure Status: Acute (2) CAP (community acquired pneumonia) Status: Acute (3) COPD exacerbation Status: Acute Comment Review of Relevant I have reviewed the following items jameel (where applicable) has been applied. Labs Laboratory Tests Test 11/13/16 04:26 White Blood Count 13.7x10^3/uL (4.0-11.0) Red Blood Count 3.66x10^6/uL (4.30-5.70) Hemoglobin 9.9g/dL (13.0-17.5) Hematocrit 31.0% (39.0-53.0) Mean Corpuscular Volume 85fL (79-100) Mean Corpuscular Hemoglobin 27pg (25-35) Mean Corpuscular Hemoglobin Concent 32g/dL (31-37) Red Cell Distribution Width 14.3% (11.5-14.5) Platelet Count 191x10^3/uL (140-400) Neutrophils (%) (Auto) 72% (31-73) Lymphocytes (%) (Auto) 17% (24-48) Monocytes (%) (Auto) 11% (0-9) Eosinophils (%) (Auto) 0% (0-3) Basophils (%) (Auto) 0% (0-3) Neutrophils # (Auto) 9.9x10^3uL (1.8-7.7) Lymphocytes # (Auto) 2.3x10^3/uL (1.0-4.8) Monocytes # (Auto) 1.4x10^3/uL (0.0-1.1) Eosinophils # (Auto) 0.0x10^3/uL (0.0-0.7) Basophils # (Auto) 0.0x10^3/uL (0.0-0.2) Sodium Level 146mmol/L (136-145) Potassium Level 4.3mmol/L (3.5-5.1) Chloride Level 106mmol/L (98-107) Carbon Dioxide Level 38mmol/L (21-32) Anion Gap 2 (6-14) Blood Urea Nitrogen 22mg/dL (8-26) Creatinine 1.4mg/dL (0.7-1.3) Estimated GFR (Cockcroft-Gault) 59.0 Glucose Level 81mg/dL (70-99) Calcium Level 8.6mg/dL (8.5-10.1) Microbiology 11/09/16 Blood Culture - Preliminary, Resulted NO GROWTH AFTER 3 DAYS 11/09/16 Sputum Culture - Final, Complete 11/09/16 Sputum Result 1 - Final, Complete Vitals/I & O Vital Sign - Last 24 Hours 311/12/16 11/12/16 11/12/16 10:46 11:35 14:49 15:23 Temp 97.4 97.6 97.4 97.6 Pulse 64 79 Resp 18 18 B/P 133/72 145/82 Pulse Ox 96 97 99 O2 Delivery Nasal Cannula Nasal Cannula Nasal Cannula Nasal Cannula O2 Flow Rate 4.0 4.0 4.0 4.0 11/12/16 11/12/16 11/12/16 11/12/16 19:00 20:00 20:11 20:11 Temp 98.1 98.1 Pulse 85 Resp 18 B/P 148/79 Pulse Ox 98 95 O2 Delivery Nasal Cannula Nasal Cannula Nasal Cannula Nasal Cannula O2 Flow Rate 4.0 4.0 4.0 4.0 11/12/16 11/13/16 11/13/16 11/13/16 22:31 02:39 07:00 08:00 Temp 98.5 97.8 97.9 98.5 97.8 97.9 Pulse 83 84 86 Resp 18 18 B/P 152/79 144/82 142/87 Pulse Ox 96 95 100 96 O2 Delivery Nasal Cannula Nasal Cannula Nasal Cannula Nasal Cannula O2 Flow Rate 4.0 4.0 4.0 4.0 11/13/16 08:18 O2 Delivery Nasal Cannula O2 Flow Rate 4.0 Intake and Output 11/12/16 11/12/16 11/13/16 15:00 23:00 07:00 Intake Total 360 ml 300 ml Output Total 800 ml 1250 ml Balance -440 ml -950 ml SARITA FLORES MD Nov 13, 2016 10:13
--- NOTE | 2016-11-13 10:38 | PDOC ---
Infectious Disease Note Subjective Subjective pt feeling better ROS ROS GEN: Denies fevers, chills, sweats HEENT: Denies blurred vision, sore throat CV: Denies chest pain RESP: Denies shortness of air, cough GI: Denies n/v/d NEURO: Denies confusion, dizziness MSK: Denies weakness, joint pain/swelling Vital Sign Vital Signs Vital Signs Date Time Temp Pulse Resp B/P Pulse Ox O2 Delivery O2 Flow Rate FiO2 11/13/16 08:18 Nasal Cannula 4.0 11/13/16 08:00 96 11/13/16 07:00 97.9 86 18 142/87 97.9 Physical Exam PHYSICAL EXAM GENERAL: NAD, Alert HEENT: PERRL, OC/OP NECK: Supple, no JVD, no LN LUNGS: Clear HEART: S1S2, no gallop, no murmur ABD: Soft, NT, no organomegaly, no rebound EXT: No edema, no cyanosis DENIAL RESOLUTION SPECIALIST: Alert, oriented x 3, no focal neurologic deficit SKIN: No rash IV: ok Labs Lab Laboratory Tests Test 11/13/16 04:26 White Blood Count 13.7x10^3/uL (4.0-11.0) Red Blood Count 3.66x10^6/uL (4.30-5.70) Hemoglobin 9.9g/dL (13.0-17.5) Hematocrit 31.0% (39.0-53.0) Mean Corpuscular Volume 85fL (79-100) Mean Corpuscular Hemoglobin 27pg (25-35) Mean Corpuscular Hemoglobin Concent 32g/dL (31-37) Red Cell Distribution Width 14.3% (11.5-14.5) Platelet Count 191x10^3/uL (140-400) Neutrophils (%) (Auto) 72% (31-73) Lymphocytes (%) (Auto) 17% (24-48) Monocytes (%) (Auto) 11% (0-9) Eosinophils (%) (Auto) 0% (0-3) Basophils (%) (Auto) 0% (0-3) Neutrophils # (Auto) 9.9x10^3uL (1.8-7.7) Lymphocytes # (Auto) 2.3x10^3/uL (1.0-4.8) Monocytes # (Auto) 1.4x10^3/uL (0.0-1.1) Eosinophils # (Auto) 0.0x10^3/uL (0.0-0.7) Basophils # (Auto) 0.0x10^3/uL (0.0-0.2) Sodium Level 146mmol/L (136-145) Potassium Level 4.3mmol/L (3.5-5.1) Chloride Level 106mmol/L (98-107) Carbon Dioxide Level 38mmol/L (21-32) Anion Gap 2 (6-14) Blood Urea Nitrogen 22mg/dL (8-26) Creatinine 1.4mg/dL (0.7-1.3) Estimated GFR (Cockcroft-Gault) 59.0 Glucose Level 81mg/dL (70-99) Calcium Level 8.6mg/dL (8.5-10.1) Objective Assessment COPD exacerbation Acute bronchitis Leukocytosis Anemia h/o Lung ca Plan Plan of Care zyvox and zosyn,,, soon to change to po, ct pending check cultures and adjust supportive care d/w NICOLE Hernandez MD Nov 13, 2016 10:38
[2016-11-13 10:39] VITALS: BP 112/71
--- NOTE | 2016-11-13 10:44 | PDOC ---
PULMONARY PROGRESS NOTES Subjective PT WITH LESS SOA Vitals Vital Signs Date Time Temp Pulse Resp B/P Pulse Ox O2 Delivery O2 Flow Rate FiO2 11/13/16 10:39 97.6 94 18 112/71 95 Nasal Cannula 4.0 97.6 ROS: No Nausea, No Chest Pain, No Abdominal Pain, No Increase Cough General: Alert, No acute distress HEENT: Other (nc at perrl) Lungs: Crackles, Other Cardiovascular: S1, S2 Abdomen: Soft, Non-tender Neuro Exam: Alert Extremities: No Edema Skin: Warm Labs Laboratory Tests Test 11/12/16 05:45 11/13/16 04:26 White Blood Count 15.2x10^3/uL (4.0-11.0) 13.7x10^3/uL (4.0-11.0) Red Blood Count 3.55x10^6/uL (4.30-5.70) 3.66x10^6/uL (4.30-5.70) Hemoglobin 9.4g/dL (13.0-17.5) 9.9g/dL (13.0-17.5) Hematocrit 30.1% (39.0-53.0) 31.0% (39.0-53.0) Mean Corpuscular Volume 85fL (79-100) 85fL (79-100) Mean Corpuscular Hemoglobin 27pg (25-35) 27pg (25-35) Mean Corpuscular Hemoglobin Concent 31g/dL (31-37) 32g/dL (31-37) Red Cell Distribution Width 14.7% (11.5-14.5) 14.3% (11.5-14.5) Platelet Count 184x10^3/uL (140-400) 191x10^3/uL (140-400) Neutrophils (%) (Auto) 81% (31-73) 72% (31-73) Lymphocytes (%) (Auto) 11% (24-48) 17% (24-48) Monocytes (%) (Auto) 8% (0-9) 11% (0-9) Eosinophils (%) (Auto) 0% (0-3) 0% (0-3) Basophils (%) (Auto) 0% (0-3) 0% (0-3) Neutrophils # (Auto) 12.3x10^3uL (1.8-7.7) 9.9x10^3uL (1.8-7.7) Lymphocytes # (Auto) 1.7x10^3/uL (1.0-4.8) 2.3x10^3/uL (1.0-4.8) Monocytes # (Auto) 1.2x10^3/uL (0.0-1.1) 1.4x10^3/uL (0.0-1.1) Eosinophils # (Auto) 0.0x10^3/uL (0.0-0.7) 0.0x10^3/uL (0.0-0.7) Basophils # (Auto) 0.0x10^3/uL (0.0-0.2) 0.0x10^3/uL (0.0-0.2) Sodium Level 147mmol/L (136-145) 146mmol/L (136-145) Potassium Level 4.6mmol/L (3.5-5.1) 4.3mmol/L (3.5-5.1) Chloride Level 106mmol/L (98-107) 106mmol/L (98-107) Carbon Dioxide Level 36mmol/L (21-32) 38mmol/L (21-32) Anion Gap 5 (6-14) 2 (6-14) Blood Urea Nitrogen 29mg/dL (8-26) 22mg/dL (8-26) Creatinine 1.4mg/dL (0.7-1.3) 1.4mg/dL (0.7-1.3) Estimated GFR (Cockcroft-Gault) 59.0 59.0 Glucose Level 84mg/dL (70-99) 81mg/dL (70-99) Calcium Level 8.7mg/dL (8.5-10.1) 8.6mg/dL (8.5-10.1) Laboratory Tests Test 11/13/16 04:26 White Blood Count 13.7x10^3/uL (4.0-11.0) Red Blood Count 3.66x10^6/uL (4.30-5.70) Hemoglobin 9.9g/dL (13.0-17.5) Hematocrit 31.0% (39.0-53.0) Mean Corpuscular Volume 85fL (79-100) Mean Corpuscular Hemoglobin 27pg (25-35) Mean Corpuscular Hemoglobin Concent 32g/dL (31-37) Red Cell Distribution Width 14.3% (11.5-14.5) Platelet Count 191x10^3/uL (140-400) Neutrophils (%) (Auto) 72% (31-73) Lymphocytes (%) (Auto) 17% (24-48) Monocytes (%) (Auto) 11% (0-9) Eosinophils (%) (Auto) 0% (0-3) Basophils (%) (Auto) 0% (0-3) Neutrophils # (Auto) 9.9x10^3uL (1.8-7.7) Lymphocytes # (Auto) 2.3x10^3/uL (1.0-4.8) Monocytes # (Auto) 1.4x10^3/uL (0.0-1.1) Eosinophils # (Auto) 0.0x10^3/uL (0.0-0.7) Basophils # (Auto) 0.0x10^3/uL (0.0-0.2) Sodium Level 146mmol/L (136-145) Potassium Level 4.3mmol/L (3.5-5.1) Chloride Level 106mmol/L (98-107) Carbon Dioxide Level 38mmol/L (21-32) Anion Gap 2 (6-14) Blood Urea Nitrogen 22mg/dL (8-26) Creatinine 1.4mg/dL (0.7-1.3) Estimated GFR (Cockcroft-Gault) 59.0 Glucose Level 81mg/dL (70-99) Calcium Level 8.6mg/dL (8.5-10.1) Medications Active Scripts Medications Dose Route/Sig Days Date Category Albuterol Sulfate Neb Soln (Albuterol Sulfate) 2.5 Mg/3 Ml Vial.neb 11/09/16 Reported Triamterene-Hctz 37.5-25 Mg Tb (Triamterene/Hydrochlorothiazid) 1 Each Tablet 11/09/16 Reported Prednisone 20 Mg Tablet 40 Mg PO DAILY 05/15/16 Rx Amox Tr-K Clv 875-125 Mg Tab (Amoxicillin/Potassium Clav) 1 Each Tablet 1 Tab PO BID 05/15/16 Rx Prednisone 10 Mg Tablet 10 Mg PO DIRECTED 05/12/16 Rx Miralax (Polyethylene Glycol 3350) 17 Gm Powd.pack 17 Gm PO PRN DAILY PRN 05/12/16 Rx Nystatin 100,000 Unit/1 Ml Oral.susp 5 Ml SWSW [id number] 05/12/16 Rx Duoneb 0.5-3(2.5) Mg/3 Ml (Albuterol/Ipratropium) 3 Ml Ampul.neb 3 Ml NEB RTQID 05/12/16 Rx Mucinex (Guaifenesin) 600 Mg Tablet.er 1,200 Mg PO BID 05/12/16 Rx Mapap (Acetaminophen) 325 Mg Tablet 650 Mg PO PRN Q6HRS PRN 05/12/16 Rx Alphagan P (Brimonidine Tartrate) 5 Ml Drops 1 Drop EACHEYE TID 04/12/16 Reported Timolol Maleate 10 Ml Drops 1 Drop EACHEYE TID 04/12/16 Reported Flomax (Tamsulosin Hcl) 0.4 Mg Cap.er.24h 1 Cap PO DAILY 10/24/15 Reported Allopurinol 100 Mg Tablet 1 Tab PO DAILY 10/24/15 Reported Comments Bands of presumed scarring bilaterally are stable. Blunting of the right costophrenic angle may be related to pleural parenchymal scarring and is stable. Impression . IMPRESSION: 1. Acute on chronic respiratory failure, multifactorial in etiology. 2. Acute exacerbation of chronic obstructive pulmonary disease. 3. Acute bronchitis. 4. Acute kidney injury. 5. Leukocytosis. 6. Anemia. Plan . ANTIBX PER ID [id number] OF CHEST BLANCHE NGUYEN MD Nov 13, 2016 10:44
--- NOTE | 2016-11-13 12:00 | RAD ---
Indication history of COPD. Difficulty breathing. Assess for potential pneumonia. Noncontrast imaging through the chest was performed and is compared to a study 08/01/2016. Imaging through the upper abdomen shows no acute finding. Partially calcified right renal cyst is noted as well as cholelithiasis. There is slight enlargement of the left adrenal gland. This is similar to the previous exam and likely reflects an incidental adenoma or hyperplasia. The appearance, too, is unchanged compared to a study 10/23/2015. Significant hilar or mediastinal adenopathy is not seen. There is some coronary artery calcification. There is a new infiltrate in the right upper lobe, compared to the previous exam, compatible with pneumonia. Hyperexpansion of the lungs and additional chronic changes are noted similar to the previous study. Some pleural-parenchymal scarring is noted at the right lung apex, similar. IMPRESSION: New infiltrate, compatible with pneumonia, in the right upper lobe PQRS Compliance Statement: One or more of the following individualized dose reduction techniques were utilized for this examination: 1. Automated exposure control 2. Adjustment of the mA and/or kV according to patient size 3. Use of iterative reconstruction technique
[2016-11-13 14:53] VITALS: BP 134/78
[2016-11-13 19:00] VITALS: BP 146/87
[2016-11-13 23:00] VITALS: BP 146/82
[2016-11-14] MEDS: PIPERACILLIN/TAZOBACTAM 3.375 GM in IV NORMAL SALINE 50ML 50 ML IV SCH ×4 (00:14→17:09)
[2016-11-14 03:00] VITALS: BP 137/79
[2016-11-14 05:48] LABS: BASO # 0.1 x10^3/uL (0.0-0.2); BASO % 0 % (0-3); EOS % 1 % (0-3); HEMATOCRIT 31.6 % (39.0-53.0); LYMPH # 2.3 x10^3/uL (1.0-4.8); LYMPH % 17 % (24-48); MEAN CORPUSCULAR HEMOGLOBIN 27 pg (25-35); MEAN CORPUSCULAR HGB CONC 32 g/dL (31-37); MEAN CORPUSCULAR VOLUME 85 fL (79-100); MONO % 11 % (0-9); NEUT % 71 % (31-73); PLATELET COUNT 182 x10^3/uL (140-400); RED CELL DISTRIBUTION WIDTH 14.4 % (11.5-14.5); WHITE BLOOD COUNT 13.9 x10^3/uL (4.0-11.0)
[2016-11-14 06:02] LABS: CALCIUM 8.5 mg/dL (8.5-10.1); CREATININE 1.6 mg/dL (0.7-1.3); GFR 50.6; POTASSIUM 4.4 mmol/L (3.5-5.1)
[2016-11-14 07:00] VITALS: BP 131/80
[2016-11-14] MEDS: IPRATRPIUM/ALBUTEROL 0.5/2.5MG 3 ML NEBU. NEB SCH ×4 (08:13→19:33)
[2016-11-14] MEDS: BUDESONIDE 0.5 MG/2 ML NEBU NEB SCH ×2 (08:13→19:33)
[2016-11-14] MEDS: PREDNISONE 20 MG TABLET PO SCH (09:16)
[2016-11-14] MEDS: GUAIFENESIN ER 600 MG TABLET.ER PO SCH ×2 (09:16→20:26)
[2016-11-14] MEDS: PANTOPRAZOLE 40 MG TABLET. PO SCH (09:16)
[2016-11-14] MEDS: ALLOPURINOL 100 MG TABLET. PO SCH (09:16)
[2016-11-14] MEDS: TAMSULOSIN 0.4 MG CAP.ER.24H. PO SCH (09:16)
[2016-11-14] MEDS: ENOXAPARIN 40 MG/0.4 ML DISP.SYRIN. SQ SCH (09:16)
[2016-11-14] MEDS: NYSTATIN 100,000 UNITS/ML 5 ML ORAL.SUSP. SWSW SCH ×4 (09:16→20:25)
[2016-11-14] MEDS: TIMOLOL 0.5% OPHTH SOLUTION 5ML BOTTLE. OU SCH ×3 (09:17→20:25)
[2016-11-14] MEDS: BRIMONIDINE 0.2% OPHTH SOLUTION 5ML BOTTLE. OU SCH ×3 (09:17→20:25)
--- NOTE | 2016-11-14 09:44 | PDOC ---
PULMONARY PROGRESS NOTES Subjective PT WITH LESS SOA Vitals Vital Signs Date Time Temp Pulse Resp B/P Pulse Ox O2 Delivery O2 Flow Rate FiO2 11/14/16 08:13 99 Nasal Cannula 4.0 11/14/16 07:00 97.5 87 16 131/80 97.5 ROS: No Nausea, No Chest Pain, No Abdominal Pain, No Increase Cough General: Alert, No acute distress HEENT: Other (nc at perrl) Lungs: Crackles, Other Cardiovascular: S1, S2 Abdomen: Soft, Non-tender Neuro Exam: Alert Extremities: No Edema Skin: Warm Labs Laboratory Tests Test 11/13/16 04:26 11/14/16 05:10 White Blood Count 13.7x10^3/uL (4.0-11.0) 13.9x10^3/uL (4.0-11.0) Red Blood Count 3.66x10^6/uL (4.30-5.70) 3.70x10^6/uL (4.30-5.70) Hemoglobin 9.9g/dL (13.0-17.5) 10.0g/dL (13.0-17.5) Hematocrit 31.0% (39.0-53.0) 31.6% (39.0-53.0) Mean Corpuscular Volume 85fL (79-100) 85fL (79-100) Mean Corpuscular Hemoglobin 27pg (25-35) 27pg (25-35) Mean Corpuscular Hemoglobin Concent 32g/dL (31-37) 32g/dL (31-37) Red Cell Distribution Width 14.3% (11.5-14.5) 14.4% (11.5-14.5) Platelet Count 191x10^3/uL (140-400) 182x10^3/uL (140-400) Neutrophils (%) (Auto) 72% (31-73) 71% (31-73) Lymphocytes (%) (Auto) 17% (24-48) 17% (24-48) Monocytes (%) (Auto) 11% (0-9) 11% (0-9) Eosinophils (%) (Auto) 0% (0-3) 1% (0-3) Basophils (%) (Auto) 0% (0-3) 0% (0-3) Neutrophils # (Auto) 9.9x10^3uL (1.8-7.7) 9.8x10^3uL (1.8-7.7) Lymphocytes # (Auto) 2.3x10^3/uL (1.0-4.8) 2.3x10^3/uL (1.0-4.8) Monocytes # (Auto) 1.4x10^3/uL (0.0-1.1) 1.6x10^3/uL (0.0-1.1) Eosinophils # (Auto) 0.0x10^3/uL (0.0-0.7) 0.1x10^3/uL (0.0-0.7) Basophils # (Auto) 0.0x10^3/uL (0.0-0.2) 0.1x10^3/uL (0.0-0.2) Sodium Level 146mmol/L (136-145) 147mmol/L (136-145) Potassium Level 4.3mmol/L (3.5-5.1) 4.4mmol/L (3.5-5.1) Chloride Level 106mmol/L (98-107) 106mmol/L (98-107) Carbon Dioxide Level 38mmol/L (21-32) 37mmol/L (21-32) Anion Gap 2 (6-14) 4 (6-14) Blood Urea Nitrogen 22mg/dL (8-26) 17mg/dL (8-26) Creatinine 1.4mg/dL (0.7-1.3) 1.6mg/dL (0.7-1.3) Estimated GFR (Cockcroft-Gault) 59.0 50.6 Glucose Level 81mg/dL (70-99) 86mg/dL (70-99) Calcium Level 8.6mg/dL (8.5-10.1) 8.5mg/dL (8.5-10.1) Laboratory Tests Test 11/14/16 05:10 White Blood Count 13.9x10^3/uL (4.0-11.0) Red Blood Count 3.70x10^6/uL (4.30-5.70) Hemoglobin 10.0g/dL (13.0-17.5) Hematocrit 31.6% (39.0-53.0) Mean Corpuscular Volume 85fL (79-100) Mean Corpuscular Hemoglobin 27pg (25-35) Mean Corpuscular Hemoglobin Concent 32g/dL (31-37) Red Cell Distribution Width 14.4% (11.5-14.5) Platelet Count 182x10^3/uL (140-400) Neutrophils (%) (Auto) 71% (31-73) Lymphocytes (%) (Auto) 17% (24-48) Monocytes (%) (Auto) 11% (0-9) Eosinophils (%) (Auto) 1% (0-3) Basophils (%) (Auto) 0% (0-3) Neutrophils # (Auto) 9.8x10^3uL (1.8-7.7) Lymphocytes # (Auto) 2.3x10^3/uL (1.0-4.8) Monocytes # (Auto) 1.6x10^3/uL (0.0-1.1) Eosinophils # (Auto) 0.1x10^3/uL (0.0-0.7) Basophils # (Auto) 0.1x10^3/uL (0.0-0.2) Sodium Level 147mmol/L (136-145) Potassium Level 4.4mmol/L (3.5-5.1) Chloride Level 106mmol/L (98-107) Carbon Dioxide Level 37mmol/L (21-32) Anion Gap 4 (6-14) Blood Urea Nitrogen 17mg/dL (8-26) Creatinine 1.6mg/dL (0.7-1.3) Estimated GFR (Cockcroft-Gault) 50.6 Glucose Level 86mg/dL (70-99) Calcium Level 8.5mg/dL (8.5-10.1) Medications Active Scripts Medications Dose Route/Sig Days Date Category Albuterol Sulfate Neb Soln (Albuterol Sulfate) 2.5 Mg/3 Ml Vial.neb 11/09/16 Reported Triamterene-Hctz 37.5-25 Mg Tb (Triamterene/Hydrochlorothiazid) 1 Each Tablet 11/09/16 Reported Prednisone 20 Mg Tablet 40 Mg PO DAILY 9/20/16 Rx Amox Tr-K Clv 875-125 Mg Tab (Amoxicillin/Potassium Clav) 1 Each Tablet 1 Tab PO BID 05/15/16 Rx Prednisone 10 Mg Tablet 10 Mg PO DIRECTED 05/12/16 Rx Miralax (Polyethylene Glycol 3350) 17 Gm Powd.pack 17 Gm PO PRN DAILY PRN 05/12/16 Rx Nystatin 100,000 Unit/1 Ml Oral.susp 5 Ml SWSW [id number] 05/12/16 Rx Duoneb 0.5-3(2.5) Mg/3 Ml (Albuterol/Ipratropium) 3 Ml Ampul.neb 3 Ml NEB RTQID 05/12/16 Rx Mucinex (Guaifenesin) 600 Mg Tablet.er 1,200 Mg PO BID 05/12/16 Rx Mapap (Acetaminophen) 325 Mg Tablet 650 Mg PO PRN Q6HRS PRN 05/12/16 Rx Alphagan P (Brimonidine Tartrate) 5 Ml Drops 1 Drop EACHEYE TID 04/12/16 Reported Timolol Maleate 10 Ml Drops 1 Drop EACHEYE TID 04/12/16 Reported Flomax (Tamsulosin Hcl) 0.4 Mg Cap.er.24h 1 Cap PO DAILY 10/24/15 Reported Allopurinol 100 Mg Tablet 1 Tab PO DAILY 10/24/15 Reported Comments Bands of presumed scarring bilaterally are stable. Blunting of the right costophrenic angle may be related to pleural parenchymal scarring and is stable. Impression . IMPRESSION: 1. Acute on chronic respiratory failure, multifactorial in etiology. 2. Acute exacerbation of chronic obstructive pulmonary disease. 3. Acute bronchitis. 4. Acute kidney injury. 5. Leukocytosis. 6. Anemia. ct chest IMPRESSION: New infiltrate, compatible with pneumonia, in the right upper lobe Plan . ANTIBX PER ID [id number] OF CHEST REVIEWED PNEUMONIA BLANCHE NGUYEN MD Nov 14, 2016 09:44
[2016-11-14 10:33] VITALS: BP 137/73
--- NOTE | 2016-11-14 10:38 | PDOC ---
PROGRESS NOTES Subjective Subjective no new problems Objective Objective Vital Signs Date Time Temp Pulse Resp B/P Pulse Ox O2 Delivery O2 Flow Rate FiO2 11/14/16 10:33 99.3 88 18 137/73 99 Nasal Cannula 4.0 99.3 Intake and Output 11/14/16 07:00 Intake Total 660 ml Output Total 1300 ml Balance -640 ml Intake Oral 660 ml Output Urine Total 1300 ml Physical Exam Abdomen: Normal bowel sounds, Soft Heart: Regular rate, Normal S1, Normal S2 Extremities: No clubbing General: Alert HEENT: Atraumatic Lungs: Other (dec breath sounds) MUSCULOSKELETAL: No joint tenderness, Osteoarthritic changes both hands Neck: Supple Neuro: Normal speech Psych/Mental Status: Mental status NL Skin: No breakdown Diagnosis Problem List Problems Medical Problems: (1) Acute on chronic respiratory failure Status: Acute (2) CAP (community acquired pneumonia) Status: Acute (3) COPD exacerbation Status: Acute Assessment Assessment Problems Medical Problems: (1) Acute on chronic respiratory failure Status: Acute (2) CAP (community acquired pneumonia) Status: Acute (3) COPD exacerbation Status: Acute FINAL IMPRESSION: 1. Rt upper lobe pneumonia.suspect gram neg. 2. Chronic obstructive pulmonary disease with acute exacerbation. 3. History of lung cancer, had a lobectomy 15 years ago, right upper lobe. 4. BPH. 5. Hypertension. 6. Chronic COPD with hypoxia, on home oxygen. PLAN: CT chest showed rt upper lobe pneumonia. sputum c/s neg. wbc 14 down. cr 1.6 started on Zyvox+zosyn for broader coverage ID consulted sputum c/s mixed gina PT/OT iv solumedrol. Problems: Plan Plan of Care Problems Medical Problems: (1) Acute on chronic respiratory failure Status: Acute (2) CAP (community acquired pneumonia) Status: Acute (3) COPD exacerbation Status: Acute Comment Review of Relevant I have reviewed the following items jameel (where applicable) has been applied. Labs Laboratory Tests Test 11/14/16 05:10 White Blood Count 13.9x10^3/uL (4.0-11.0) Red Blood Count 3.70x10^6/uL (4.30-5.70) Hemoglobin 10.0g/dL (13.0-17.5) Hematocrit 31.6% (39.0-53.0) Mean Corpuscular Volume 85fL (79-100) Mean Corpuscular Hemoglobin 27pg (25-35) Mean Corpuscular Hemoglobin Concent 32g/dL (31-37) Red Cell Distribution Width 14.4% (11.5-14.5) Platelet Count 182x10^3/uL (140-400) Neutrophils (%) (Auto) 71% (31-73) Lymphocytes (%) (Auto) 17% (24-48) Monocytes (%) (Auto) 11% (0-9) Eosinophils (%) (Auto) 1% (0-3) Basophils (%) (Auto) 0% (0-3) Neutrophils # (Auto) 9.8x10^3uL (1.8-7.7) Lymphocytes # (Auto) 2.3x10^3/uL (1.0-4.8) Monocytes # (Auto) 1.6x10^3/uL (0.0-1.1) Eosinophils # (Auto) 0.1x10^3/uL (0.0-0.7) Basophils # (Auto) 0.1x10^3/uL (0.0-0.2) Sodium Level 147mmol/L (136-145) Potassium Level 4.4mmol/L (3.5-5.1) Chloride Level 106mmol/L (98-107) Carbon Dioxide Level 37mmol/L (21-32) Anion Gap 4 (6-14) Blood Urea Nitrogen 17mg/dL (8-26) Creatinine 1.6mg/dL (0.7-1.3) Estimated GFR (Cockcroft-Gault) 50.6 Glucose Level 86mg/dL (70-99) Calcium Level 8.5mg/dL (8.5-10.1) Microbiology 11/09/16 Blood Culture - Final, Complete NO GROWTH AFTER 5 DAYS 11/09/16 Sputum Culture - Final, Complete 11/09/16 Sputum Result 1 - Final, Complete Vitals/I & O Vital Sign - Last 24 Hours 11/13/16 11/13/16 11/13/16 11/13/16 10:39 11:21 14:53 15:19 Temp 97.6 98.0 97.6 98.0 Pulse 94 88 Resp 18 18 B/P 112/71 134/78 Pulse Ox 95 100 99 100 O2 Delivery Nasal Cannula Nasal Cannula Room Air Nasal Cannula O2 Flow Rate 4.0 4.0 4.0 11/13/16 11/13/16 11/13/16 11/13/16 19:00 20:00 20:09 23:00 Temp 97.8 97.9 97.8 97.9 Pulse 84 86 Resp 20 20 B/P 146/87 146/82 Pulse Ox 97 100 99 O2 Delivery Nasal Cannula Nasal Cannula Nasal Cannula Nasal Cannula O2 Flow Rate 4.0 4.0 4.0 11/14/16 11/14/16 11/14/16 11/14/16 03:00 07:00 08:00 08:13 Temp 98.1 97.5 98.1 97.5 Pulse 83 87 Resp 16 B/P 137/79 131/80 Pulse Ox 99 100 99 O2 Delivery Room Air Nasal Cannula Nasal Cannula Nasal Cannula O2 Flow Rate 4.0 4.0 4.0 11/14/16 10:33 Temp 99.3 99.3 Pulse 88 Resp 18 B/P 137/73 Pulse Ox 99 O2 Delivery Nasal Cannula O2 Flow Rate 4.0 Intake and Output 11/13/16 11/13/16 11/14/16 15:00 23:00 07:00 Intake Total 360 ml 300 ml Output Total 800 ml 500 ml Balance -440 ml -200 ml SARITA FLORES MD Nov 14, 2016 10:38
--- NOTE | 2016-11-14 11:04 | PDOC ---
Infectious Disease Note Subjective Subjective pt feeling better ROS ROS GEN: Denies fevers, chills, sweats HEENT: Denies blurred vision, sore throat CV: Denies chest pain RESP: Denies shortness of air, cough GI: Denies n/v/d NEURO: Denies confusion, dizziness MSK: Denies weakness, joint pain/swelling Vital Sign Vital Signs Vital Signs Date Time Temp Pulse Resp B/P Pulse Ox O2 Delivery O2 Flow Rate FiO2 11/14/16 10:33 99.3 88 18 137/73 99 Nasal Cannula 4.0 99.3 Physical Exam PHYSICAL EXAM GENERAL: NAD, Alert HEENT: PERRL, OC/OP NECK: Supple, no JVD, no LN LUNGS: Clear HEART: S1S2, no gallop, no murmur ABD: Soft, NT, no organomegaly, no rebound EXT: No edema, no cyanosis DIRECTOR INFORMATION: Alert, oriented x 3, no focal neurologic deficit SKIN: No rash IV: ok Labs Lab Laboratory Tests Test 11/14/16 05:10 White Blood Count 13.9x10^3/uL (4.0-11.0) Red Blood Count 3.70x10^6/uL (4.30-5.70) Hemoglobin 10.0g/dL (13.0-17.5) Hematocrit 31.6% (39.0-53.0) Mean Corpuscular Volume 85fL (79-100) Mean Corpuscular Hemoglobin 27pg (25-35) Mean Corpuscular Hemoglobin Concent 32g/dL (31-37) Red Cell Distribution Width 14.4% (11.5-14.5) Platelet Count 182x10^3/uL (140-400) Neutrophils (%) (Auto) 71% (31-73) Lymphocytes (%) (Auto) 17% (24-48) Monocytes (%) (Auto) 11% (0-9) Eosinophils (%) (Auto) 1% (0-3) Basophils (%) (Auto) 0% (0-3) Neutrophils # (Auto) 9.8x10^3uL (1.8-7.7) Lymphocytes # (Auto) 2.3x10^3/uL (1.0-4.8) Monocytes # (Auto) 1.6x10^3/uL (0.0-1.1) Eosinophils # (Auto) 0.1x10^3/uL (0.0-0.7) Basophils # (Auto) 0.1x10^3/uL (0.0-0.2) Sodium Level 147mmol/L (136-145) Potassium Level 4.4mmol/L (3.5-5.1) Chloride Level 106mmol/L (98-107) Carbon Dioxide Level 37mmol/L (21-32) Anion Gap 4 (6-14) Blood Urea Nitrogen 17mg/dL (8-26) Creatinine 1.6mg/dL (0.7-1.3) Estimated GFR (Cockcroft-Gault) 50.6 Glucose Level 86mg/dL (70-99) Calcium Level 8.5mg/dL (8.5-10.1) Objective Assessment COPD exacerbation Acute bronchitis Leukocytosis Anemia h/o Lung ca Plan Plan of Care zyvox and zosyn,,, soon to change to po, ct pending check cultures and adjust supportive care d/w NICOLE Hernandez MD Nov 14, 2016 11:04
[2016-11-14 15:00] VITALS: BP 124/75
[2016-11-14 19:00] VITALS: BP 135/82
[2016-11-14 22:32] VITALS: BP 129/56
[2016-11-15 02:45] VITALS: BP 129/76
[2016-11-15 04:54] LABS: BASO % 0 % (0-3); EOS % 1 % (0-3); HEMATOCRIT 30.6 % (39.0-53.0); HEMOGLOBIN 9.8 g/dL (13.0-17.5); LYMPH # 2.2 x10^3/uL (1.0-4.8); LYMPH % 15 % (24-48); MEAN CORPUSCULAR HEMOGLOBIN 27 pg (25-35); MEAN CORPUSCULAR HGB CONC 32 g/dL (31-37); MEAN CORPUSCULAR VOLUME 84 fL (79-100); MONO % 8 % (0-9); NEUT % 76 % (31-73); PLATELET COUNT 196 x10^3/uL (140-400); RED BLOOD COUNT 3.64 x10^6/uL (4.30-5.70); RED CELL DISTRIBUTION WIDTH 14.6 % (11.5-14.5); WHITE BLOOD COUNT 14.7 x10^3/uL (4.0-11.0)
[2016-11-15] MEDS: PIPERACILLIN/TAZOBACTAM 3.375 GM in IV NORMAL SALINE 50ML 50 ML IV SCH ×3 (04:56)
[2016-11-15 05:12] LABS: CALCIUM 8.5 mg/dL (8.5-10.1); CREATININE 1.3 mg/dL (0.7-1.3); GFR 64.3; POTASSIUM 4.5 mmol/L (3.5-5.1)
[2016-11-15 07:00] VITALS: BP 146/81
[2016-11-15] MEDS: PANTOPRAZOLE 40 MG TABLET. PO SCH (07:30)
[2016-11-15] MEDS: IPRATRPIUM/ALBUTEROL 0.5/2.5MG 3 ML NEBU. NEB SCH ×4 (08:12→20:21)
[2016-11-15] MEDS: BUDESONIDE 0.5 MG/2 ML NEBU NEB SCH (08:12)
[2016-11-15] MEDS: ENOXAPARIN 40 MG/0.4 ML DISP.SYRIN. SQ SCH (09:00)
[2016-11-15] MEDS: TIMOLOL 0.5% OPHTH SOLUTION 5ML BOTTLE. OU SCH ×3 (09:00→20:17)
[2016-11-15] MEDS: BRIMONIDINE 0.2% OPHTH SOLUTION 5ML BOTTLE. OU SCH ×3 (09:00→20:17)
[2016-11-15] MEDS: GUAIFENESIN ER 600 MG TABLET.ER PO SCH ×2 (09:00→20:16)
[2016-11-15] MEDS: NYSTATIN 100,000 UNITS/ML 5 ML ORAL.SUSP. SWSW SCH ×4 (09:00→20:16)
[2016-11-15] MEDS: PREDNISONE 20 MG TABLET PO SCH (09:00)
[2016-11-15] MEDS: ALLOPURINOL 100 MG TABLET. PO SCH (09:00)
[2016-11-15] MEDS: TAMSULOSIN 0.4 MG CAP.ER.24H. PO SCH (09:00)
--- NOTE | 2016-11-15 09:41 | PDOC ---
Infectious Disease Note Subjective Subjective pt feeling better ROS ROS GEN: Denies fevers, chills, sweats HEENT: Denies blurred vision, sore throat CV: Denies chest pain RESP: Denies shortness of air, cough GI: Denies n/v/d NEURO: Denies confusion, dizziness MSK: Denies weakness, joint pain/swelling Vital Sign Vital Signs Vital Signs Date Time Temp Pulse Resp B/P Pulse Ox O2 Delivery O2 Flow Rate FiO2 11/15/16 08:12 96 Nasal Cannula 4.0 11/15/16 07:00 98.5 87 20 146/81 98.5 Physical Exam PHYSICAL EXAM GENERAL: NAD, Alert HEENT: PERRL, OC/OP NECK: Supple, no JVD, no LN LUNGS: Clear HEART: S1S2, no gallop, no murmur ABD: Soft, NT, no organomegaly, no rebound EXT: No edema, no cyanosis PIPE ROLLER: Alert, oriented x 3, no focal neurologic deficit SKIN: No rash IV: ok Labs Lab Laboratory Tests Test 11/15/16 04:40 White Blood Count 14.7x10^3/uL (4.0-11.0) Red Blood Count 3.64x10^6/uL (4.30-5.70) Hemoglobin 9.8g/dL (13.0-17.5) Hematocrit 30.6% (39.0-53.0) Mean Corpuscular Volume 84fL (79-100) Mean Corpuscular Hemoglobin 27pg (25-35) Mean Corpuscular Hemoglobin Concent 32g/dL (31-37) Red Cell Distribution Width 14.6% (11.5-14.5) Platelet Count 196x10^3/uL (140-400) Neutrophils (%) (Auto) 76% (31-73) Lymphocytes (%) (Auto) 15% (24-48) Monocytes (%) (Auto) 8% (0-9) Eosinophils (%) (Auto) 1% (0-3) Basophils (%) (Auto) 0% (0-3) Neutrophils # (Auto) 11.1x10^3uL (1.8-7.7) Lymphocytes # (Auto) 2.2x10^3/uL (1.0-4.8) Monocytes # (Auto) 1.2x10^3/uL (0.0-1.1) Eosinophils # (Auto) 0.1x10^3/uL (0.0-0.7) Basophils # (Auto) 0.0x10^3/uL (0.0-0.2) Sodium Level 147mmol/L (136-145) Potassium Level 4.5mmol/L (3.5-5.1) Chloride Level 106mmol/L (98-107) Carbon Dioxide Level 39mmol/L (21-32) Anion Gap 2 (6-14) Blood Urea Nitrogen 19mg/dL (8-26) Creatinine 1.3mg/dL (0.7-1.3) Estimated GFR (Cockcroft-Gault) 64.3 Glucose Level 94mg/dL (70-99) Calcium Level 8.5mg/dL (8.5-10.1) Objective Assessment COPD exacerbation Acute bronchitis Leukocytosis Anemia h/o Lung ca Plan Plan of Care zyvox and zosyn,,, change to po, augmentin check cultures and adjust supportive care d/w NICOLE Hernandez MD Nov 15, 2016 09:41
--- NOTE | 2016-11-15 10:23 | PDOC ---
PROGRESS NOTES Subjective Subjective feeling better ,eating out side food Objective Objective Vital Signs Date Time Temp Pulse Resp B/P Pulse Ox O2 Delivery O2 Flow Rate FiO2 11/15/16 08:12 96 Nasal Cannula 4.0 11/15/16 07:00 98.5 87 20 146/81 98.5 Intake and Output 11/15/16 07:00 Intake Total 1000 ml Output Total 500 ml Balance 500 ml Intake Oral 1000 ml Output Urine Total 500 ml # Voids 4 Physical Exam Abdomen: Normal bowel sounds, Soft Heart: Regular rate, Normal S1, Normal S2 Extremities: No clubbing General: Alert HEENT: Atraumatic Lungs: Other (dec breath sounds) MUSCULOSKELETAL: No joint tenderness, Osteoarthritic changes both hands Neck: Supple Neuro: Normal speech Psych/Mental Status: Mental status NL Skin: No breakdown Diagnosis Problem List Problems Medical Problems: (1) Acute on chronic respiratory failure Status: Acute (2) CAP (community acquired pneumonia) Status: Acute (3) COPD exacerbation Status: Acute Assessment Assessment Problems Medical Problems: (1) Acute on chronic respiratory failure Status: Acute (2) CAP (community acquired pneumonia) Status: Acute (3) COPD exacerbation Status: Acute FINAL IMPRESSION: 1. Rt upper lobe pneumonia.suspect gram neg. 2. Chronic obstructive pulmonary disease with acute exacerbation. 3. History of lung cancer, had a lobectomy 15 years ago, right upper lobe. 4. BPH. 5. Hypertension. 6. Chronic COPD with hypoxia, on home oxygen. PLAN: change to oral antibiotics today. d/c home tomorrow. spoke with ID. CT chest showed rt upper lobe pneumonia. sputum c/s neg. wbc 14 down. cr 1.3 on Zyvox+zosyn for broader coverage ID consulted sputum c/s mixed gina PT/OT iv solumedrol. Problems: Plan Plan of Care Problems Medical Problems: (1) Acute on chronic respiratory failure Status: Acute (2) CAP (community acquired pneumonia) Status: Acute (3) COPD exacerbation Status: Acute Comment Review of Relevant I have reviewed the following items jameel (where applicable) has been applied. Labs Laboratory Tests Test 11/15/16 04:40 White Blood Count 14.7x10^3/uL (4.0-11.0) Red Blood Count 3.64x10^6/uL (4.30-5.70) Hemoglobin 9.8g/dL (13.0-17.5) Hematocrit 30.6% (39.0-53.0) Mean Corpuscular Volume 84fL (79-100) Mean Corpuscular Hemoglobin 27pg (25-35) Mean Corpuscular Hemoglobin Concent 32g/dL (31-37) Red Cell Distribution Width 14.6% (11.5-14.5) Platelet Count 196x10^3/uL (140-400) Neutrophils (%) (Auto) 76% (31-73) Lymphocytes (%) (Auto) 15% (24-48) Monocytes (%) (Auto) 8% (0-9) Eosinophils (%) (Auto) 1% (0-3) Basophils (%) (Auto) 0% (0-3) Neutrophils # (Auto) 11.1x10^3uL (1.8-7.7) Lymphocytes # (Auto) 2.2x10^3/uL (1.0-4.8) Monocytes # (Auto) 1.2x10^3/uL (0.0-1.1) Eosinophils # (Auto) 0.1x10^3/uL (0.0-0.7) Basophils # (Auto) 0.0x10^3/uL (0.0-0.2) Sodium Level 147mmol/L (136-145) Potassium Level 4.5mmol/L (3.5-5.1) Chloride Level 106mmol/L (98-107) Carbon Dioxide Level 39mmol/L (21-32) Anion Gap 2 (6-14) Blood Urea Nitrogen 19mg/dL (8-26) Creatinine 1.3mg/dL (0.7-1.3) Estimated GFR (Cockcroft-Gault) 64.3 Glucose Level 94mg/dL (70-99) Calcium Level 8.5mg/dL (8.5-10.1) Microbiology 11/09/16 Blood Culture - Final, Complete NO GROWTH AFTER 5 DAYS 11/09/16 Sputum Culture - Final, Complete 11/09/16 Sputum Result 1 - Final, Complete Medications Current Medications Amoxicillin/ Clavulanate Potassium (Augmentin 875/ 125mg) 1 tab BID PO ; Start 11/15/16 at 11:00 Vitals/I & O Vital Sign - Last 24 Hours 3/22/17 11/14/16 11/14/16 11/14/16 10:33 11:09 15:00 15:50 Temp 99.3 97.4 99.3 97.4 Pulse 88 83 Resp 18 14 B/P 137/73 124/75 Pulse Ox 99 97 100 O2 Delivery Nasal Cannula Nasal Cannula Nasal Cannula Nasal Cannula O2 Flow Rate 4.0 4.0 4.0 4.0 11/14/16 11/14/16 11/14/16 11/14/16 19:00 19:34 19:35 20:00 Temp 97.9 97.9 Pulse 83 Resp 18 B/P 135/82 Pulse Ox 100 99 99 O2 Delivery Nasal Cannula Nasal Cannula Nasal Cannula Nasal Cannula O2 Flow Rate 4.0 4.0 4.0 4.0 11/14/16 11/15/16 11/15/16 11/15/16 22:32 02:45 07:00 08:12 Temp 97.7 97.7 98.5 97.7 97.7 98.5 Pulse 80 83 87 Resp 18 18 20 B/P 129/56 129/76 146/81 Pulse Ox 98 96 97 96 O2 Delivery Nasal Cannula Nasal Cannula Nasal Cannula Nasal Cannula O2 Flow Rate 4.0 4.0 2.0 4.0 Intake and Output 11/14/16 11/14/16 11/15/16 15:00 23:00 07:00 Intake Total 300 ml 700 ml Output Total 500 ml Balance 300 ml 200 ml SARITA FLORES MD Nov 15, 2016 10:22
[2016-11-15 11:00] VITALS: BP 131/73
[2016-11-15] MEDS: AMOXICILLIN/K CLAV 875/125MG TABLET. PO SCH ×2 (14:11→20:17)
--- NOTE | 2016-11-15 14:48 | PDOC ---
PULMONARY PROGRESS NOTES Subjective no soa Vitals Vital Signs Date Time Temp Pulse Resp B/P Pulse Ox O2 Delivery O2 Flow Rate FiO2 11/15/16 11:19 Nasal Cannula 4.0 11/15/16 11:00 98.5 87 24 131/73 96 98.5 ROS: No Nausea, No Chest Pain, No Abdominal Pain, No Increase Cough General: Alert, No acute distress HEENT: Other (nc at perrl) Lungs: Other (decrease bs) Cardiovascular: S1, S2 Abdomen: Soft, Non-tender Neuro Exam: Alert Extremities: No Edema Skin: Warm Labs Laboratory Tests Test 11/14/16 05:10 11/15/16 04:40 White Blood Count 13.9x10^3/uL (4.0-11.0) 14.7x10^3/uL (4.0-11.0) Red Blood Count 3.70x10^6/uL (4.30-5.70) 3.64x10^6/uL (4.30-5.70) Hemoglobin 10.0g/dL (13.0-17.5) 9.8g/dL (13.0-17.5) Hematocrit 31.6% (39.0-53.0) 30.6% (39.0-53.0) Mean Corpuscular Volume 85fL (79-100) 84fL (79-100) Mean Corpuscular Hemoglobin 27pg (25-35) 27pg (25-35) Mean Corpuscular Hemoglobin Concent 32g/dL (31-37) 32g/dL (31-37) Red Cell Distribution Width 14.4% (11.5-14.5) 14.6% (11.5-14.5) Platelet Count 182x10^3/uL (140-400) 196x10^3/uL (140-400) Neutrophils (%) (Auto) 71% (31-73) 76% (31-73) Lymphocytes (%) (Auto) 17% (24-48) 15% (24-48) Monocytes (%) (Auto) 11% (0-9) 8% (0-9) Eosinophils (%) (Auto) 1% (0-3) 1% (0-3) Basophils (%) (Auto) 0% (0-3) 0% (0-3) Neutrophils # (Auto) 9.8x10^3uL (1.8-7.7) 11.1x10^3uL (1.8-7.7) Lymphocytes # (Auto) 2.3x10^3/uL (1.0-4.8) 2.2x10^3/uL (1.0-4.8) Monocytes # (Auto) 1.6x10^3/uL (0.0-1.1) 1.2x10^3/uL (0.0-1.1) Eosinophils # (Auto) 0.1x10^3/uL (0.0-0.7) 0.1x10^3/uL (0.0-0.7) Basophils # (Auto) 0.1x10^3/uL (0.0-0.2) 0.0x10^3/uL (0.0-0.2) Sodium Level 147mmol/L (136-145) 147mmol/L (136-145) Potassium Level 4.4mmol/L (3.5-5.1) 4.5mmol/L (3.5-5.1) Chloride Level 106mmol/L (98-107) 106mmol/L (98-107) Carbon Dioxide Level 37mmol/L (21-32) 39mmol/L (21-32) Anion Gap 4 (6-14) 2 (6-14) Blood Urea Nitrogen 17mg/dL (8-26) 19mg/dL (8-26) Creatinine 1.6mg/dL (0.7-1.3) 1.3mg/dL (0.7-1.3) Estimated GFR (Cockcroft-Gault) 50.6 64.3 Glucose Level 86mg/dL (70-99) 94mg/dL (70-99) Calcium Level 8.5mg/dL (8.5-10.1) 8.5mg/dL (8.5-10.1) Laboratory Tests Test 11/15/16 04:40 White Blood Count 14.7x10^3/uL (4.0-11.0) Red Blood Count 3.64x10^6/uL (4.30-5.70) Hemoglobin 9.8g/dL (13.0-17.5) Hematocrit 30.6% (39.0-53.0) Mean Corpuscular Volume 84fL (79-100) Mean Corpuscular Hemoglobin 27pg (25-35) Mean Corpuscular Hemoglobin Concent 32g/dL (31-37) Red Cell Distribution Width 14.6% (11.5-14.5) Platelet Count 196x10^3/uL (140-400) Neutrophils (%) (Auto) 76% (31-73) Lymphocytes (%) (Auto) 15% (24-48) Monocytes (%) (Auto) 8% (0-9) Eosinophils (%) (Auto) 1% (0-3) Basophils (%) (Auto) 0% (0-3) Neutrophils # (Auto) 11.1x10^3uL (1.8-7.7) Lymphocytes # (Auto) 2.2x10^3/uL (1.0-4.8) Monocytes # (Auto) 1.2x10^3/uL (0.0-1.1) Eosinophils # (Auto) 0.1x10^3/uL (0.0-0.7) Basophils # (Auto) 0.0x10^3/uL (0.0-0.2) Sodium Level 147mmol/L (136-145) Potassium Level 4.5mmol/L (3.5-5.1) Chloride Level 106mmol/L (98-107) Carbon Dioxide Level 39mmol/L (21-32) Anion Gap 2 (6-14) Blood Urea Nitrogen 19mg/dL (8-26) Creatinine 1.3mg/dL (0.7-1.3) Estimated GFR (Cockcroft-Gault) 64.3 Glucose Level 94mg/dL (70-99) Calcium Level 8.5mg/dL (8.5-10.1) Medications Active Scripts Medications Dose Route/Sig Days Date Category Albuterol Sulfate Neb Soln (Albuterol Sulfate) 2.5 Mg/3 Ml Vial.neb 11/09/16 Reported Triamterene-Hctz 37.5-25 Mg Tb (Triamterene/Hydrochlorothiazid) 1 Each Tablet 11/09/16 Reported Prednisone 20 Mg Tablet 40 Mg PO DAILY 05/15/16 Rx Amox Tr-K Clv 875-125 Mg Tab (Amoxicillin/Potassium Clav) 1 Each Tablet 1 Tab PO BID 05/15/16 Rx Prednisone 10 Mg Tablet 10 Mg PO DIRECTED 05/12/16 Rx Miralax (Polyethylene Glycol 3350) 17 Gm Powd.pack 17 Gm PO PRN DAILY PRN 05/12/16 Rx Nystatin 100,000 Unit/1 Ml Oral.susp 5 Ml SWSW [id number] 05/12/16 Rx Duoneb 0.5-3(2.5) Mg/3 Ml (Albuterol/Ipratropium) 3 Ml Ampul.neb 3 Ml NEB RTQID 05/12/16 Rx Mucinex (Guaifenesin) 600 Mg Tablet.er 1,200 Mg PO BID 05/12/16 Rx Mapap (Acetaminophen) 325 Mg Tablet 650 Mg PO PRN Q6HRS PRN 05/12/16 Rx Alphagan P (Brimonidine Tartrate) 5 Ml Drops 1 Drop EACHEYE TID 04/12/16 Reported Timolol Maleate 10 Ml Drops 1 Drop EACHEYE TID 04/12/16 Reported Flomax (Tamsulosin Hcl) 0.4 Mg Cap.er.24h 1 Cap PO DAILY 10/24/15 Reported Allopurinol 100 Mg Tablet 1 Tab PO DAILY 10/24/15 Reported Comments Bands of presumed scarring bilaterally are stable. Blunting of the right costophrenic angle may be related to pleural parenchymal scarring and is stable. Impression . 1. Acute on chronic respiratory failure, multifactorial in etiology. 2. Acute exacerbation of chronic obstructive pulmonary disease. 3. Acute bronchitis. 4. Acute kidney injury. 5. Leukocytosis. 6. Anemia. 7. New infiltrate, compatible with pneumonia, in the right upper lobe Plan . ANTIBX PER ID [id number] NEBS PO STEROID TAPER CT OF CHEST REVIEWED PNEUMONIA DC HOME IN 24 HR FRANCIA IRWIN MD Nov 15, 2016 14:48
[2016-11-15 16:11] VITALS: BP 138/88
[2016-11-15 19:00] VITALS: BP 140/81
[2016-11-15] MEDS: BUDESONIDE 0.5 MG/2 ML NEBU. NEB SCH (20:21)
[2016-11-15 23:00] VITALS: BP 146/82
[2016-11-16 07:50] VITALS: BP 140/70
[2016-11-16] MEDS: BUDESONIDE 0.5 MG/2 ML NEBU. NEB SCH (07:50)
[2016-11-16] MEDS: IPRATRPIUM/ALBUTEROL 0.5/2.5MG 3 ML NEBU. NEB SCH ×2 (07:51→11:36)
[2016-11-16 07:55] VITALS: BP 118/68
[2016-11-16] MEDS: NYSTATIN 100,000 UNITS/ML 5 ML ORAL.SUSP. SWSW SCH (08:52)
[2016-11-16] MEDS: TAMSULOSIN 0.4 MG CAP.ER.24H. PO SCH (08:52)
[2016-11-16] MEDS: AMOXICILLIN/K CLAV 875/125MG TABLET. PO SCH (08:53)
[2016-11-16] MEDS: PANTOPRAZOLE 40 MG TABLET. PO SCH (08:53)
[2016-11-16] MEDS: GUAIFENESIN ER 600 MG TABLET.ER PO SCH (08:53)
[2016-11-16] MEDS: PREDNISONE 20 MG TABLET PO SCH (08:54)
[2016-11-16] MEDS: ALLOPURINOL 100 MG TABLET. PO SCH (08:54)
[2016-11-16] MEDS: ENOXAPARIN 40 MG/0.4 ML DISP.SYRIN. SQ SCH (08:55)
[2016-11-16] MEDS: TIMOLOL 0.5% OPHTH SOLUTION 5ML BOTTLE. OU SCH (08:55)
[2016-11-16] MEDS: BRIMONIDINE 0.2% OPHTH SOLUTION 5ML BOTTLE. OU SCH (08:56)
--- NOTE | 2016-11-16 10:17 | PDOC ---
PROGRESS NOTES Subjective Subjective feels ok Objective Objective Vital Signs Date Time Temp Pulse Resp B/P Pulse Ox O2 Delivery O2 Flow Rate FiO2 11/16/16 07:55 98.2 76 20 118/68 100 Nasal Cannula 4.0 98.2 Intake and Output 11/16/16 07:00 Intake Total 2210 ml Output Total 1500 ml Balance 710 ml Intake Oral 2210 ml Output Urine Total 1500 ml # Voids 1 Physical Exam Abdomen: Normal bowel sounds, Soft Heart: Regular rate, Normal S1, Normal S2 Extremities: No clubbing General: Alert HEENT: Atraumatic Lungs: Other (dec breath sounds) MUSCULOSKELETAL: No joint tenderness, Osteoarthritic changes both hands Neck: Supple Neuro: Normal speech Psych/Mental Status: Mental status NL Skin: No breakdown Diagnosis Problem List Problems Medical Problems: (1) Acute on chronic respiratory failure Status: Acute (2) CAP (community acquired pneumonia) Status: Acute (3) COPD exacerbation Status: Acute Assessment Assessment Problems Medical Problems: (1) Acute on chronic respiratory failure Status: Acute (2) CAP (community acquired pneumonia) Status: Acute (3) COPD exacerbation Status: Acute FINAL IMPRESSION: 1. Rt upper lobe pneumonia.suspect gram neg. 2. Chronic obstructive pulmonary disease with acute exacerbation. 3. History of lung cancer, had a lobectomy 15 years ago, right upper lobe. 4. BPH. 5. Hypertension. 6. Chronic COPD with hypoxia, on home oxygen. PLAN: changed to oral antibiotics yesterday. d/c home today spoke with ID. CT chest showed rt upper lobe pneumonia. sputum c/s neg. wbc 14 down. cr 1.3 ID consulted sputum c/s mixed gina PT/OT po prednisone Problems: Plan Plan of Care Problems Medical Problems: (1) Acute on chronic respiratory failure Status: Acute (2) CAP (community acquired pneumonia) Status: Acute (3) COPD exacerbation Status: Acute Comment Review of Relevant I have reviewed the following items jameel (where applicable) has been applied. Labs Microbiology 11/09/16 Blood Culture - Final, Complete NO GROWTH AFTER 5 DAYS 11/09/16 Sputum Culture - Final, Complete 11/09/16 Sputum Result 1 - Final, Complete Medications Current Medications Amoxicillin/ Clavulanate Potassium (Augmentin 875/ 125mg) 1 tab BID PO Last administered on 11/16/16t 08:53; Start 11/15/16 at 11:00 Budesonide (Pulmicort) 0.5 mg RTBID NEB Last administered on 11/16/16t 07:50; Start 11/15/16 at 20:00 Vitals/I & O Vital Sign - Last 24 Hours 11/15/16 11/15/16 11/15/16 11/15/16 11:00 11:19 15:00 15:35 Temp 98.5 97.9 98.5 97.9 Pulse 87 Resp 24 B/P 131/73 Pulse Ox 96 97 O2 Delivery Room Air Nasal Cannula Nasal Cannula O2 Flow Rate 4.0 4.0 11/15/16 11/15/16 11/15/16 11/15/16 16:11 19:00 20:09 20:18 Temp 98.2 98.2 Pulse 84 87 Resp 24 20 B/P 138/88 140/81 Pulse Ox 97 99 96 O2 Delivery Room Air Room Air Nasal Cannula Nasal Cannula O2 Flow Rate 4.0 4.0 11/15/16 11/16/16 23:00 07:55 Temp 97.9 98.2 97.9 98.2 Pulse 81 76 Resp 20 B/P 146/82 118/68 Pulse Ox 100 100 O2 Delivery Nasal Cannula Nasal Cannula O2 Flow Rate 2.0 4.0 Intake and Output 11/15/16 11/15/16 11/16/16 15:00 23:00 07:00 Intake Total 720 ml 1090 ml 400 ml Output Total 900 ml 400 ml 200 ml Balance -180 ml 690 ml 200 ml SARITA FLORES MD Nov 16, 2016 10:17
--- NOTE | 2016-11-16 10:36 | PDOC ---
Provider Note Provider Note Discharge summary dictated. #[id number] SARITA FLORES MD Nov 16, 2016 10:36
[2016-11-16 10:49] VITALS: BP 141/83
--- NOTE | 2016-11-16 12:01 | PDOC ---
Infectious Disease Note Subjective Subjective pt feeling better ROS ROS GEN: Denies fevers, chills, sweats HEENT: Denies blurred vision, sore throat CV: Denies chest pain RESP: Denies shortness of air, cough GI: Denies n/v/d NEURO: Denies confusion, dizziness MSK: Denies weakness, joint pain/swelling Vital Sign Vital Signs Vital Signs Date Time Temp Pulse Resp B/P Pulse Ox O2 Delivery O2 Flow Rate FiO2 11/16/16 11:34 55 Nasal Cannula 4.0 11/16/16 10:49 97.8 80 20 141/83 97.8 Physical Exam PHYSICAL EXAM GENERAL: NAD, Alert HEENT: PERRL, OC/OP NECK: Supple, no JVD, no LN LUNGS: Clear HEART: S1S2, no gallop, no murmur ABD: Soft, NT, no organomegaly, no rebound EXT: No edema, no cyanosis INTERACTIVE MEDIA SPECIALIST: Alert, oriented x 3, no focal neurologic deficit SKIN: No rash IV: ok Objective Assessment COPD exacerbation Acute bronchitis Leukocytosis Anemia h/o Lung ca Plan Plan of Care po, augmentin d/c ok supportive care d/w NICOLE Hernandez MD Nov 16, 2016 12:01
--- NOTE | 2016-11-16 12:35 | PDOC ---
PULMONARY PROGRESS NOTES Subjective no soa, no pain, no runny nose, has occ cough. Vitals Vital Signs Date Time Temp Pulse Resp B/P Pulse Ox O2 Delivery O2 Flow Rate FiO2 11/16/16 11:34 55 Nasal Cannula 4.0 11/16/16 10:49 97.8 80 20 141/83 97.8 ROS: No Nausea, No Chest Pain, No Abdominal Pain, No Increase Cough General: Alert, No acute distress HEENT: Other (nc at perrl) Lungs: Other (decrease bs) Cardiovascular: S1, S2 Abdomen: Soft, Non-tender Neuro Exam: Alert Extremities: No Edema Skin: Warm Labs Laboratory Tests Test 11/15/16 04:40 White Blood Count 14.7x10^3/uL (4.0-11.0) Red Blood Count 3.64x10^6/uL (4.30-5.70) Hemoglobin 9.8g/dL (13.0-17.5) Hematocrit 30.6% (39.0-53.0) Mean Corpuscular Volume 84fL (79-100) Mean Corpuscular Hemoglobin 27pg (25-35) Mean Corpuscular Hemoglobin Concent 32g/dL (31-37) Red Cell Distribution Width 14.6% (11.5-14.5) Platelet Count 196x10^3/uL (140-400) Neutrophils (%) (Auto) 76% (31-73) Lymphocytes (%) (Auto) 15% (24-48) Monocytes (%) (Auto) 8% (0-9) Eosinophils (%) (Auto) 1% (0-3) Basophils (%) (Auto) 0% (0-3) Neutrophils # (Auto) 11.1x10^3uL (1.8-7.7) Lymphocytes # (Auto) 2.2x10^3/uL (1.0-4.8) Monocytes # (Auto) 1.2x10^3/uL (0.0-1.1) Eosinophils # (Auto) 0.1x10^3/uL (0.0-0.7) Basophils # (Auto) 0.0x10^3/uL (0.0-0.2) Sodium Level 147mmol/L (136-145) Potassium Level 4.5mmol/L (3.5-5.1) Chloride Level 106mmol/L (98-107) Carbon Dioxide Level 39mmol/L (21-32) Anion Gap 2 (6-14) Blood Urea Nitrogen 19mg/dL (8-26) Creatinine 1.3mg/dL (0.7-1.3) Estimated GFR (Cockcroft-Gault) 64.3 Glucose Level 94mg/dL (70-99) Calcium Level 8.5mg/dL (8.5-10.1) Medications Active Scripts Medications Dose Route/Sig Days Date Category Albuterol Sulfate Neb Soln (Albuterol Sulfate) 2.5 Mg/3 Ml Vial.neb 11/09/16 Reported Triamterene-Hctz 37.5-25 Mg Tb (Triamterene/Hydrochlorothiazid) 1 Each Tablet 11/09/16 Reported Prednisone 20 Mg Tablet 40 Mg PO DAILY 05/15/16 Rx Amox Tr-K Clv 875-125 Mg Tab (Amoxicillin/Potassium Clav) 1 Each Tablet 1 Tab PO BID 05/15/16 Rx Prednisone 10 Mg Tablet 10 Mg PO DIRECTED 05/12/16 Rx Miralax (Polyethylene Glycol 3350) 17 Gm Powd.pack 17 Gm PO PRN DAILY PRN 05/12/16 Rx Nystatin 100,000 Unit/1 Ml Oral.susp 5 Ml SWSW [id number] 05/12/16 Rx Duoneb 0.5-3(2.5) Mg/3 Ml (Albuterol/Ipratropium) 3 Ml Ampul.neb 3 Ml NEB RTQID 05/12/16 Rx Mucinex (Guaifenesin) 600 Mg Tablet.er 1,200 Mg PO BID 05/12/16 Rx Mapap (Acetaminophen) 325 Mg Tablet 650 Mg PO PRN Q6HRS PRN 05/12/16 Rx Alphagan P (Brimonidine Tartrate) 5 Ml Drops 1 Drop EACHEYE TID 04/12/16 Reported Timolol Maleate 10 Ml Drops 1 Drop EACHEYE TID 04/12/16 Reported Flomax (Tamsulosin Hcl) 0.4 Mg Cap.er.24h 1 Cap PO DAILY 10/24/15 Reported Allopurinol 100 Mg Tablet 1 Tab PO DAILY 10/24/15 Reported Comments Bands of presumed scarring bilaterally are stable. Blunting of the right costophrenic angle may be related to pleural parenchymal scarring and is stable. Impression . 1. Acute on chronic respiratory failure, multifactorial in etiology. 2. Acute exacerbation of chronic obstructive pulmonary disease. 3. Acute bronchitis. 4. Acute kidney injury. 5. Leukocytosis. 6. Anemia. 7. New infiltrate, compatible with pneumonia, in the right upper lobe Plan . ANTIBX PER ID 02 NEBS PO STEROID TAPER by [address] OF CHEST REVIEWED PNEUMONIA DC HOME today discussed w pt ROSARIO CRAIN MD Nov 16, 2016 12:35
--- NOTE | 2016-11-16 22:28 | DS ---
DATE OF DISCHARGE: 11/16/2016 PATIENT LOCATION: [facility] REASON FOR ADMISSION TO THE HOSPITAL: Pneumonia. CONSULTATIONS: 1. Dr. Kent, Pulmonology. 2. Dr. Rizwan Lowry, Infectious Disease. PROCEDURE DONE: CT chest. COMPLICATIONS NOTED: None. HOSPITAL COURSE: The patient, an 81-year-old male, has a history of lung cancer, had a surgery done, right lobectomy many years ago for that and has chronic COPD, on home oxygen, was having green phlegm and short of breath, came to the Emergency Room and he was treated with broad spectrum antibiotics. Seen by Pulmonology as well as Infectious Disease. Had a CT chest, shows right upper lobe pneumonia. After a week of IV antibiotics, the patient was changed to oral antibiotic Augmentin and prednisone and it was felt that he could be discharged home, finish off another 10 days of oral antibiotics. If things do not improve in the next 2 weeks, probably he may need a bronchoscopy. FINAL DIAGNOSES: 1. Pneumonia, right upper lobe, suspect gram negative. 2. History of lung cancer, status post lobectomy. 3. Chronic obstructive pulmonary disease with hypoxia, on home oxygen. 4. Hypertension. DISPOSITION: Home. DISCHARGE MEDICATIONS: See MRAD for discharge medications. FOLLOWUP: With PCP in 1 week and Pulmonary in 2 weeks. SARITA FLORES MD DR: JESSENIA/chandler JOB#: [id number] / [id number] anda [address]
== END 2016-11-16 13:15 | disposition home or self-care (01) | DRG 177 ==
LOC: ER 08:45 → ED HOLD 11:25 → 5 SOUTH 12:50
PROVIDERS: ADMIT Internal Medicine; ATTEND Internal Medicine
DX: J15.6 Pneumonia due to other Gram-negative bacteria (principal); J96.21 Acute and chronic respiratory failure with hypoxia; J44.0 Chronic obstructive pulmonary disease with (acute) lower respiratory infection; J44.1 Chronic obstructive pulmonary disease with (acute) exacerbation; N17.9 Acute kidney failure, unspecified; D64.9 Anemia, unspecified; I10 Essential (primary) hypertension; I70.0 Atherosclerosis of aorta; J20.9 Acute bronchitis, unspecified; M10.9 Gout, unspecified; N40.0 Benign prostatic hyperplasia without lower urinary tract symptoms; Z23 Encounter for immunization; Z82.49 Family history of ischemic heart disease and other diseases of the circulatory system; Z85.118 Personal history of other malignant neoplasm of bronchus and lung; Z87.891 Personal history of nicotine dependence; Z90.2 Acquired absence of lung [part of]; Z99.81 Dependence on supplemental oxygen
CPT/HCPCS: 36415; 71010; 71020; 71250; 80048; 80053; 82553; 83605; 83880; 84484; 85007; 85027; 87040; 87070; 87205; 87804; 93005; 94250; 94640; 94644; 94760; 96374; 96375; J1650; J1956; J2020; J2543; J2930; J7030; J7512; J7620; 99285-25

== ENCOUNTER → 2017-08-02 | Outpatient (CLI) | payer OTHER ==
[~2017-08-02] MED LIST changes: +ALBU2.5V5; -GUAI600T38 PO; +GUAI600T47 PO; -NYST1000 SWSW; +NYST100054 SWSW; +POLY17PO29 PO; -POLY17PO5 PO; +TRIA1TAB3
--- NOTE | 2017-08-02 10:59 | RAD ---
Examination: CT chest without contrast History: History of primary lung cancer. Comparison: 11/13/2016 Technique: Axial CT images of the chest were performed with contrast. Coronal and sagittal reformats are performed. PQRS Compliance Statement: One or more of the following individualized dose reduction techniques were utilized for this examination: 1. Automated exposure control 2. Adjustment of the mA and/or kV according to patient size 3. Use of iterative reconstruction technique Findings: The visualized thyroid gland grossly appears unremarkable. The central airways are patent. Diffuse coronary artery calcifications identified. The heart size grossly appears unremarkable. The ascending aorta measures 3.6 cm in transverse dimension. Small mediastinal lymph nodes identified with the largest measuring 1.3 cm in the precarinal region grossly similar to prior exam. There are patchy nodular interstitial opacities identified in the right upper lobe, right middle lobe and right lower lobe of the lung with mild bronchiectatic changes. There is airspace opacity identified in the right upper lobe of the lung abutting the fissure could be scarring changes or atelectasis. Linear atelectasis or scarring changes identified in the right lower lobe of the lung. No evidence of pleural effusion or pneumothorax. Mildly enlarged appearing bilateral anterior gland grossly similar to prior exam. Small gallstones identified in the gallbladder. The visualized noncontrasted liver, spleen grossly appears unremarkable. Mild aortic atherosclerosis. Cystic structure identified in the right kidney grossly similar to prior exam likely cyst. Mild degenerative disease identified in the thoracic spine. Impression: 1. Interval increase in nodular interstitial opacities identified in the right upper lobe, right middle lobe, right lower lobe of the lungs, nonspecific probably chronic interstitial changes however lymphangitic spread of tumor is not completely excluded. Close interval follow-up examination in 3 months is recommended. 2. New pleural-based scarring identified along the right fissure and right lower lobe of the lung. 3. Cholelithiasis.
== END | disposition home or self-care (01) ==
LOC: CT 10:30
PROVIDERS: ATTEND Internal Medicine Hematology & Oncology
DX: C34.91 Malignant neoplasm of unspecified part of right bronchus or lung (principal); I70.0 Atherosclerosis of aorta; K80.20 Calculus of gallbladder without cholecystitis without obstruction
CPT/HCPCS: 71250

== ENCOUNTER → 2017-11-01 | Outpatient (CLI) | payer OTHER | END | disposition home or self-care (01) | LOC: CT 15:04 | DX: C34.90 Malignant neoplasm of unspecified part of unspecified bronchus or lung (principal); D35.01 Benign neoplasm of right adrenal gland; K80.20 Calculus of gallbladder without cholecystitis without obstruction; I25.10 Atherosclerotic heart disease of native coronary artery without angina pectoris; N28.1 Cyst of kidney, acquired; R91.8 Other nonspecific abnormal finding of lung field | CPT/HCPCS: 71250 ==

== ENCOUNTER 2018-01-01 09:10 | Inpatient (IN) | payer MEDICARE, OTHER ==
[2018-01-01] MEDS: IPRATRPIUM/ALBUTEROL 0.5/2.5MG 3 ML NEBU. NEB ×5 (09:42→20:21)
[2018-01-01 09:46] LABS: ADD MAN DIFF? NO
[2018-01-01 09:48] LABS: BASO # 0.1 x10^3/uL (0.0-0.2); BASO % 1 % (0-3); EOS # 0.2 x10^3/uL (0.0-0.7); EOS % 1 % (0-3); HEMOGLOBIN 9.2 g/dL (13.0-17.5); LYMPH # 1.7 x10^3/uL (1.0-4.8); LYMPH % 14 % (24-48); MEAN CORPUSCULAR HEMOGLOBIN 26 pg (25-35); MEAN CORPUSCULAR HGB CONC 32 g/dL (31-37); MEAN CORPUSCULAR VOLUME 81 fL (79-100); MONO # 1.6 x10^3/uL (0.0-1.1); MONO % 13 % (0-9); NEUT # 8.8 x10^3uL (1.8-7.7); NEUT % 71 % (31-73); PLATELET COUNT 279 x10^3/uL (140-400); RED BLOOD COUNT 3.59 x10^6/uL (4.30-5.70); RED CELL DISTRIBUTION WIDTH 17.1 % (11.5-14.5); WHITE BLOOD COUNT 12.4 x10^3/uL (4.0-11.0)
[2018-01-01 09:52] LABS: BASE EXCESS COOX 6 mmol/L (-3-3); CARBON MONOXIDE 0.7 % (0.0-1.9); HCO3 COOX 35 mmol/L (21-28); METHEMOGLOBIN 0.2 % (0.0-1.9); OXYHEMOGLOBIN 93.2 %; PH COOX 7.28 (7.35-7.45); PO2 COOX 81 mmHg (65-108); SAT O2 COOX 94 % (92-99); TOTAL HEMOGLOBIN 11.7 g/dL
[2018-01-01 09:55] LABS: FIO2 COOX 44; PCO2 COOX 76 mmHg (35-46)
[2018-01-01 09:57] LABS: INR 1.3 (0.8-1.1); PROTHROMBIN TIME PATIENT 15.8 SEC (11.7-14.0)
[2018-01-01 10:08] LABS: ANION GAP 6 (6-14); BLOOD UREA NITROGEN 20 mg/dL (8-26); BUN/CREATININE RATIO 13 (6-20); CALCIUM 10.2 mg/dL (8.5-10.1); CARBON DIOXIDE 36 mmol/L (21-32); CHLORIDE 104 mmol/L (98-107); CREATININE 1.5 mg/dL (0.7-1.3); GFR 54.3; GLUCOSE 142 mg/dL (70-99); POTASSIUM 4.2 mmol/L (3.5-5.1); SODIUM 146 mmol/L (136-145)
[2018-01-01] MEDS: methylPREDNISolone SOD SUCC PF 125 MG/2 ML VIAL. IV (10:08)
[2018-01-01 10:14] LABS: ALBUMIN 2.8 g/dL (3.4-5.0); ALBUMIN/GLOBULIN RATIO 0.4 (1.0-1.7); ALK PHOS 71 U/L (46-116); ALT (SGPT) 17 U/L (16-63); AST (SGOT) 23 U/L (15-37); TOTAL BILIRUBIN 0.4 mg/dL (0.2-1.0); TOTAL PROTEIN 9.1 g/dL (6.4-8.2)
[2018-01-01] MEDS ORDERED: CONTRAST GIVEN MC (10:15)
[2018-01-01 10:17] LABS: TROPONINI < 0.017 ng/mL (0.000-0.055)
[2018-01-01] MEDS: IOHEXOL 300 MG/ML 100ML VIAL. IV (10:21)
[2018-01-01 10:22] LABS: CREATINE KINASE 25 U/L (39-308)
[2018-01-01 10:22] LABS: NT-PRO BNP 735 pg/mL (0-449)
[2018-01-01 10:23] LABS: CKMB MASS < 0.5 ng/mL (0.0-3.6)
[2018-01-01] MEDS ORDERED: PIP/TAZO PER PHARMACY MC ×3 (10:45→13:45)
[2018-01-01] MEDS ORDERED: VANCOMYCIN PER PHARMACY MC ×2 (10:45→13:15)
[2018-01-01] MEDS: PIPERACILLIN/TAZOBACTAM 3.375 GM in IV NORMAL SALINE 50ML 50 ML IV ×2 (11:39→18:06)
[2018-01-01] MEDS: VANCOMYCIN 1.75 GM in IV 1/2 NORMAL SALINE 500 ML IV (12:37)
[2018-01-01] MEDS ORDERED: ENOXAPARIN 30 MG/0.3 ML SYRINGE. SQ (13:45)
[2018-01-01 14:49] LABS: BASE EXCESS ABG 6 mmol/L (-3-3); HCO3 ABG 33 mmol/L (21-28); PH ABG 7.36 (7.35-7.45); PO2 ABG 70 mmHg (65-108); SAT O2 ABG 93 % (92-99)
[2018-01-01 14:57] LABS: FIO2 ABG 35; PCO2 ABG 60 mmHg (35-46)
[2018-01-01] MEDS: VANCOMYCIN PER PHARMACY MC (14:58)
[2018-01-01] MEDS: ENOXAPARIN 30 MG/0.3 ML SYRINGE. SQ (18:06)
[2018-01-01] MEDS: LACTOBACILLUS RHAMNOSUS GG 1 CAPSULE. PO (21:04)
[2018-01-01] MEDS ORDERED: POLYETHYLENE GLYCOL 3350 17 GM PACKET. PO (22:00)
[2018-01-01] MEDS: BRIMONIDINE 0.2% OPHTH SOLUTION 5ML BOTTLE. OU (22:00)
[2018-01-01] MEDS ORDERED: ACETAMINOPHEN 325 MG TABLET. PO (22:00)
[2018-01-02] MEDS: methylPREDNISolone SOD SUCC PF 40 MG/ML VIAL. IV ×4 (00:12→21:39)
[2018-01-02] MEDS: PIPERACILLIN/TAZOBACTAM 3.375 GM in IV NORMAL SALINE 50ML 50 ML IV ×4 (00:13→17:52)
[2018-01-02] MEDS: ENOXAPARIN 40 MG/0.4 ML SYRINGE. SQ ×2 (00:13→21:40)
[2018-01-02 04:06] LABS: BASO % 0 % (0-3); EOS % 0 % (0-3); HEMATOCRIT 23.7 % (39.0-53.0); HEMOGLOBIN 7.6 g/dL (13.0-17.5); LYMPH # 0.9 x10^3/uL (1.0-4.8); LYMPH % 8 % (24-48); MEAN CORPUSCULAR HEMOGLOBIN 26 pg (25-35); MEAN CORPUSCULAR HGB CONC 32 g/dL (31-37); MEAN CORPUSCULAR VOLUME 80 fL (79-100); MONO # 0.6 x10^3/uL (0.0-1.1); MONO % 5 % (0-9); NEUT # 9.9 x10^3uL (1.8-7.7); NEUT % 87 % (31-73); PLATELET COUNT 214 x10^3/uL (140-400); RED BLOOD COUNT 2.96 x10^6/uL (4.30-5.70); RED CELL DISTRIBUTION WIDTH 17.4 % (11.5-14.5); WHITE BLOOD COUNT 11.4 x10^3/uL (4.0-11.0)
[2018-01-02 04:09] LABS: ADD MAN DIFF? YES
[2018-01-02 04:19] LABS: ANION GAP 4 (6-14); BLOOD UREA NITROGEN 29 mg/dL (8-26); CALCIUM 9.3 mg/dL (8.5-10.1); CARBON DIOXIDE 34 mmol/L (21-32); CHLORIDE 104 mmol/L (98-107); CREATININE 1.6 mg/dL (0.7-1.3); GFR 50.4; GLUCOSE 145 mg/dL (70-99); SODIUM 142 mmol/L (136-145)
[2018-01-02] MEDS ORDERED: methylPREDNISolone SOD SUCC PF 40 MG/ML VIAL. (06:00)
[2018-01-02] MEDS: BRIMONIDINE 0.2% OPHTH SOLUTION 5ML BOTTLE. OU ×3 (06:00→21:40)
[2018-01-02] MEDS: IPRATRPIUM/ALBUTEROL 0.5/2.5MG 3 ML NEBU. NEB ×4 (08:00→19:55)
[2018-01-02] MEDS: LACTOBACILLUS RHAMNOSUS GG 1 CAPSULE. PO ×2 (08:46→21:40)
[2018-01-02] MEDS: TRIAMTERENE/HCTZ 37.5/25MG TABLET. PO (08:46)
[2018-01-02] MEDS: TAMSULOSIN 0.4 MG CAP.ER.24H. PO (08:46)
[2018-01-02] MEDS: TIMOLOL 0.5% OPHTH SOLUTION 5ML BOTTLE. OU ×3 (08:46→21:40)
[2018-01-02] MEDS: ALLOPURINOL 100 MG TABLET. PO (08:46)
[2018-01-02 10:53] LABS: % BANDS 5 % (0-9); % LYMPHS 4 % (24-48); % SEGS 91 % (35-66); PLT ESTIMATE ADEQUATE (ADEQUATE)
[2018-01-02] MEDS: VANCOMYCIN 1.25 GM in IV DEXTROSE 5 %-0.2 % NACL 250 ML IV (13:36)
[2018-01-03] MEDS: PIPERACILLIN/TAZOBACTAM 3.375 GM in IV NORMAL SALINE 50ML 50 ML IV ×4 (01:19→19:35)
[2018-01-03] MEDS: BRIMONIDINE 0.2% OPHTH SOLUTION 5ML BOTTLE. OU ×3 (06:03→21:20)
[2018-01-03] MEDS: methylPREDNISolone SOD SUCC PF 40 MG/ML VIAL. IV ×3 (06:03→21:16)
[2018-01-03] MEDS: IPRATRPIUM/ALBUTEROL 0.5/2.5MG 3 ML NEBU. NEB ×4 (07:59→19:08)
[2018-01-03] MEDS: ALLOPURINOL 100 MG TABLET. PO (08:45)
[2018-01-03] MEDS: LACTOBACILLUS RHAMNOSUS GG 1 CAPSULE. PO ×2 (08:45→20:15)
[2018-01-03] MEDS: TAMSULOSIN 0.4 MG CAP.ER.24H. PO (08:45)
[2018-01-03] MEDS: TIMOLOL 0.5% OPHTH SOLUTION 5ML BOTTLE. OU ×3 (08:45→20:16)
[2018-01-03] MEDS: TRIAMTERENE/HCTZ 37.5/25MG TABLET. PO (08:46)
[2018-01-03] MEDS ORDERED: BISACODYL 10 MG SUPP.RECT. PR ×2 (10:30→10:45)
[2018-01-03] MEDS ORDERED: BISACODYL 5 MG TABLET.DR. PO ×2 (10:30→10:45)
[2018-01-03 11:56] LABS: ADD MAN DIFF? NO
[2018-01-03 12:10] LABS: BASO % 0 % (0-3); EOS % 0 % (0-3); HEMATOCRIT 29.7 % (39.0-53.0); HEMOGLOBIN 9.4 g/dL (13.0-17.5); LYMPH # 1.3 x10^3/uL (1.0-4.8); LYMPH % 7 % (24-48); MEAN CORPUSCULAR HEMOGLOBIN 26 pg (25-35); MEAN CORPUSCULAR HGB CONC 32 g/dL (31-37); MEAN CORPUSCULAR VOLUME 81 fL (79-100); MONO # 1.5 x10^3/uL (0.0-1.1); MONO % 8 % (0-9); NEUT # 16.2 x10^3uL (1.8-7.7); NEUT % 85 % (31-73); PLATELET COUNT 281 x10^3/uL (140-400); RED BLOOD COUNT 3.67 x10^6/uL (4.30-5.70); RED CELL DISTRIBUTION WIDTH 17.2 % (11.5-14.5)
[2018-01-03 12:17] LABS: ANION GAP 7 (6-14); BLOOD UREA NITROGEN 36 mg/dL (8-26); CALCIUM 9.8 mg/dL (8.5-10.1); CARBON DIOXIDE 32 mmol/L (21-32); CHLORIDE 102 mmol/L (98-107); CREATININE 1.7 mg/dL (0.7-1.3); GLUCOSE 142 mg/dL (70-99); POTASSIUM 5.1 mmol/L (3.5-5.1); SODIUM 141 mmol/L (136-145)
[2018-01-03 12:21] LABS: VANC TR 14.6 mcg/mL (10.0-20.0)
[2018-01-03] MEDS: VANCOMYCIN 1.25 GM in IV DEXTROSE 5 %-0.2 % NACL 250 ML IV (12:30)
[2018-01-03] MEDS: ENOXAPARIN 40 MG/0.4 ML SYRINGE. SQ (21:17)
[2018-01-04 04:26] LABS: ADD MAN DIFF? NO
[2018-01-04 04:35] LABS: BASO % 0 % (0-3); EOS % 0 % (0-3); HEMATOCRIT 28.4 % (39.0-53.0); HEMOGLOBIN 8.9 g/dL (13.0-17.5); LYMPH # 1.4 x10^3/uL (1.0-4.8); LYMPH % 9 % (24-48); MEAN CORPUSCULAR HEMOGLOBIN 25 pg (25-35); MEAN CORPUSCULAR HGB CONC 32 g/dL (31-37); MEAN CORPUSCULAR VOLUME 80 fL (79-100); MONO # 0.7 x10^3/uL (0.0-1.1); MONO % 5 % (0-9); NEUT # 13.6 x10^3uL (1.8-7.7); NEUT % 86 % (31-73); PLATELET COUNT 295 x10^3/uL (140-400); RED BLOOD COUNT 3.55 x10^6/uL (4.30-5.70); RED CELL DISTRIBUTION WIDTH 16.8 % (11.5-14.5); WHITE BLOOD COUNT 15.7 x10^3/uL (4.0-11.0)
[2018-01-04 04:55] LABS: ANION GAP 1 (6-14); BLOOD UREA NITROGEN 34 mg/dL (8-26); CALCIUM 9.7 mg/dL (8.5-10.1); CARBON DIOXIDE 36 mmol/L (21-32); CHLORIDE 102 mmol/L (98-107); CREATININE 1.6 mg/dL (0.7-1.3); GFR 50.4; GLUCOSE 121 mg/dL (70-99); SODIUM 139 mmol/L (136-145)
[2018-01-04 05:16] LABS: POTASSIUM 5.9 mmol/L (3.5-5.1)
[2018-01-04] MEDS: PIPERACILLIN/TAZOBACTAM 3.375 GM in IV NORMAL SALINE 50ML 50 ML IV ×3 (05:47→11:09)
[2018-01-04] MEDS: methylPREDNISolone SOD SUCC PF 40 MG/ML VIAL. IV ×2 (05:47→20:28)
[2018-01-04] MEDS: BRIMONIDINE 0.2% OPHTH SOLUTION 5ML BOTTLE. OU ×4 (05:52→20:26)
[2018-01-04] MEDS: IPRATRPIUM/ALBUTEROL 0.5/2.5MG 3 ML NEBU. NEB ×4 (07:20→19:55)
[2018-01-04] MEDS: TRIAMTERENE/HCTZ 37.5/25MG TABLET. PO (08:41)
[2018-01-04] MEDS: TIMOLOL 0.5% OPHTH SOLUTION 5ML BOTTLE. OU ×3 (08:41→20:26)
[2018-01-04] MEDS: ALLOPURINOL 100 MG TABLET. PO (08:41)
[2018-01-04] MEDS: LACTOBACILLUS RHAMNOSUS GG 1 CAPSULE. PO ×2 (08:41→20:27)
[2018-01-04] MEDS: TAMSULOSIN 0.4 MG CAP.ER.24H. PO (08:41)
[2018-01-04] MEDS: SODIUM POLYSTYRENE SULFONATE 15 GM/60 ML ORAL.SUSP. PO (11:09)
[2018-01-04] MEDS: ENOXAPARIN 40 MG/0.4 ML SYRINGE. SQ (20:31)
[2018-01-05] MEDS: BRIMONIDINE 0.2% OPHTH SOLUTION 5ML BOTTLE. OU ×3 (06:07→20:21)
[2018-01-05] MEDS: ALLOPURINOL 100 MG TABLET. PO (08:19)
[2018-01-05] MEDS: LACTOBACILLUS RHAMNOSUS GG 1 CAPSULE. PO ×2 (08:19→20:22)
[2018-01-05] MEDS: TIMOLOL 0.5% OPHTH SOLUTION 5ML BOTTLE. OU ×3 (08:19→20:21)
[2018-01-05] MEDS: methylPREDNISolone SOD SUCC PF 40 MG/ML VIAL. IV (08:19)
[2018-01-05] MEDS: TAMSULOSIN 0.4 MG CAP.ER.24H. PO (08:19)
[2018-01-05] MEDS: hydroCHLOROthiazide 25 MG TABLET PO (08:19)
[2018-01-05] MEDS: IPRATRPIUM/ALBUTEROL 0.5/2.5MG 3 ML NEBU. NEB ×4 (09:33→19:37)
[2018-01-05 13:01] LABS: ANION GAP 4 (6-14); BLOOD UREA NITROGEN 32 mg/dL (8-26); CALCIUM 9.6 mg/dL (8.5-10.1); CARBON DIOXIDE 35 mmol/L (21-32); CHLORIDE 101 mmol/L (98-107); CREATININE 1.5 mg/dL (0.7-1.3); GFR 54.3; GLUCOSE 104 mg/dL (70-99); POTASSIUM 4.8 mmol/L (3.5-5.1); SODIUM 140 mmol/L (136-145)
[2018-01-05] MEDS: ENOXAPARIN 40 MG/0.4 ML SYRINGE. SQ (20:23)
[2018-01-06 04:17] LABS: ADD MAN DIFF? NO
[2018-01-06 04:30] LABS: BASO % 0 % (0-3); EOS # 0.3 x10^3/uL (0.0-0.7); EOS % 1 % (0-3); HEMATOCRIT 29.9 % (39.0-53.0); HEMOGLOBIN 9.5 g/dL (13.0-17.5); LYMPH # 4.6 x10^3/uL (1.0-4.8); LYMPH % 24 % (24-48); MEAN CORPUSCULAR HEMOGLOBIN 26 pg (25-35); MEAN CORPUSCULAR HGB CONC 32 g/dL (31-37); MEAN CORPUSCULAR VOLUME 80 fL (79-100); MONO # 1.6 x10^3/uL (0.0-1.1); MONO % 9 % (0-9); NEUT # 12.5 x10^3uL (1.8-7.7); NEUT % 66 % (31-73); PLATELET COUNT 288 x10^3/uL (140-400); RED BLOOD COUNT 3.74 x10^6/uL (4.30-5.70); RED CELL DISTRIBUTION WIDTH 17.3 % (11.5-14.5)
[2018-01-06 05:14] LABS: ANION GAP 4 (6-14); BLOOD UREA NITROGEN 32 mg/dL (8-26); CALCIUM 9.1 mg/dL (8.5-10.1); CARBON DIOXIDE 35 mmol/L (21-32); CHLORIDE 101 mmol/L (98-107); CREATININE 1.5 mg/dL (0.7-1.3); GFR 54.3; GLUCOSE 96 mg/dL (70-99); POTASSIUM 4.1 mmol/L (3.5-5.1); SODIUM 140 mmol/L (136-145)
[2018-01-06] MEDS: BRIMONIDINE 0.2% OPHTH SOLUTION 5ML BOTTLE. OU (06:05)
[2018-01-06] MEDS: IPRATRPIUM/ALBUTEROL 0.5/2.5MG 3 ML NEBU. NEB ×2 (07:59→12:19)
[2018-01-06] MEDS: predniSONE 20 MG TABLET PO (08:17)
[2018-01-06] MEDS: TAMSULOSIN 0.4 MG CAP.ER.24H. PO (08:18)
[2018-01-06] MEDS: ALLOPURINOL 100 MG TABLET. PO (08:18)
[2018-01-06] MEDS: TIMOLOL 0.5% OPHTH SOLUTION 5ML BOTTLE. OU (08:18)
[2018-01-06] MEDS: hydroCHLOROthiazide 25 MG TABLET PO (08:18)
[2018-01-06] MEDS: LACTOBACILLUS RHAMNOSUS GG 1 CAPSULE. PO (08:18)
== END 2018-01-06 14:40 | disposition home or self-care (01) | DRG 177 ==
LOC: ER 09:10 → 6 SOUTH 11:30
PROC: 5A09357 Assistance with Respiratory Ventilation, Less than 24 Consecutive Hours, Continuous Positive Airway Pressure (ICD-10-PCS; principal; 2018-01-01)
PROC: 5A09357 Assistance with Respiratory Ventilation, Less than 24 Consecutive Hours, Continuous Positive Airway Pressure (ICD-10-PCS; 2018-01-02)
DX: J15.6 Pneumonia due to other Gram-negative bacteria (principal); J96.21 Acute and chronic respiratory failure with hypoxia; E87.5 Hyperkalemia; J96.22 Acute and chronic respiratory failure with hypercapnia; J44.0 Chronic obstructive pulmonary disease with (acute) lower respiratory infection; J44.1 Chronic obstructive pulmonary disease with (acute) exacerbation; J18.9 Pneumonia, unspecified organism; D64.9 Anemia, unspecified; I12.9 Hypertensive chronic kidney disease with stage 1 through stage 4 chronic kidney disease, or unspecified chronic kidney disease; J30.9 Allergic rhinitis, unspecified; M10.9 Gout, unspecified; N18.3 Chronic kidney disease, stage 3 (moderate); T38.0X5A Adverse effect of glucocorticoids and synthetic analogues, initial encounter; Z80.1 Family history of malignant neoplasm of trachea, bronchus and lung; Z85.118 Personal history of other malignant neoplasm of bronchus and lung; Z87.891 Personal history of nicotine dependence; Z99.81 Dependence on supplemental oxygen
CPT/HCPCS: 36415; 36600; 71045; 71046; 71275; 80048; 80053; 80202; 82553; 82805; 83605; 83880; 84484; 85007; 85025; 85610; 87040; 87070; 87186; 87205; 93005; 94640; 94660; 94760; 96365; 96367; 96375; 97161-GP; 97166-GO; 99291; 99291-25; J1650; J1956; J2543; J2920; J2930; J3370; J7512; J7620; Q9967

== ENCOUNTER → 2018-02-04 | Outpatient (CLI) | payer OTHER | END | disposition home or self-care (01) | LOC: CT 09:32 | DX: C34.91 Malignant neoplasm of unspecified part of right bronchus or lung (principal); N28.1 Cyst of kidney, acquired | CPT/HCPCS: 71250 ==

== ENCOUNTER → 2019-02-16 | Outpatient (CLI) | payer OTHER ==
[2018-01-06 11:00] VITALS: BP 115/65
[~2019-02-16] MED LIST changes: +DOXY100T PO; -IPRA3AMP NEB; +IPRA3AMP29 NEB; +LEVO500T59 PO
--- NOTE | 2019-02-16 09:55 | RAD ---
Examination: CT CHEST WO CONTRAST History: Lung cancer Comparison/Correlation: 11/01/2017 and 02/04/2018 CT chest without contrast exams Findings: Axial images of chest without contrast were obtained. Sagittal and coronal reformatted images were provided. Marked decrease in right lung infiltrates is noted since the previous exam. Circumferential wall thickening involving right lung bronchi noted compatible with chronic bronchitis. There is a spiculated lesion involving the right lung base on axial image 35 and this measures 1.3 cm x 0.8 cm. It is significantly decreased compared to the prior exam however. Residual scarring or other infiltrate involving the right posterior lung base slightly more superiorly extends to the pleura. Right lateral mid thoracic subpleural infiltrate is notably decreased in size compared to prior exam. Minimal residual interstitial thickening noted. Scattered interstitial thickening of the right lung field is present and overall decreased since the prior exam. No new right lung infiltrate or new right lung pulmonary nodule. Minimal interstitial infiltrate involving the left upper lobe anteriorly noted. Right apical pleural thickening is present. Right hilar surgical clips are present. Right lower lobectomy appears be present. Opacification of right lower lobe bronchial stump is noted with fluid. No enlarged thoracic lymph nodes. Decrease in size of previously seen lymph nodes involving superior mediastinum noted. Bony structures are unremarkable. Right renal cyst is present. Adenomatous alignment of the adrenal glands is unchanged. Impression: Marked decrease in right lung infiltrates and notable decrease in size of lower lung field spiculated mass lesion. Decrease in sizes of lymph nodes. No enlarged thoracic lymph nodes. Minimal increase in left upper lung infiltrate. PQRS Compliance Statement: One or more of the following individualized dose reduction techniques were utilized for this examination: 1. Automated exposure control 2. Adjustment of the mA and/or kV according to patient size 3. Use of iterative reconstruction technique Electronically signed by: Robinson Ross MD (02/16/2019 9:53 AM) [id number]
== END | disposition home or self-care (01) ==
LOC: CT 08:27
PROVIDERS: ATTEND Internal Medicine Hematology & Oncology
DX: C34.91 Malignant neoplasm of unspecified part of right bronchus or lung (principal); R91.8 Other nonspecific abnormal finding of lung field; R91.1 Solitary pulmonary nodule; N28.1 Cyst of kidney, acquired
CPT/HCPCS: 71250